=== PATIENT | male | born 1980 | race African-American/Black ===

== ENCOUNTER 2016-03-26 08:55 | Emergency (ER) ==
[2016-03-26] MEDS ORDERED: ZOFRAN IV ONE (09:27)
[2016-03-26] MEDS ORDERED: MORPHINE IV ONE (09:27)
[2016-03-26] MEDS ORDERED: NS 1,000 ML IV ONE (09:27)
--- NOTE | 2016-03-26 09:35 | PROVIDER DOCUMENTATION ---
HPI-Abdominal Pain/GI Problem - General Source: patient - History of Present Illness-ABD Abdominal Pain Onset Location: reports: epigastric Pain Radiation: reports: back Quality of Pain: reports: aching, cramping, sharp Severity in ED: reports: mild Onset/Duration: reports: abrupt, 1-3 hours ago Timing: reports: still present, constant Activities at Onset: reports: none Exposure to sick contacts?: No Modifying Factors: improves with: nothing Associated Symptoms: reports: back/neck pain, nausea. denies: chest pain, diaphoresis, diarrhea, EENT symptoms, fever/chills, genitourinary problems, malaise, vomiting Similar Symptoms Previously?: Yes Recently seen or treated by another doctor?: No <Titi White - Last Filed: 03/26/16 10:37> <Enid Gomez - Last Filed: 03/26/16 10:44> - General Chief Complaint: Abdominal Pain Stated Complaint: ABD PAIN Time Seen by Provider: 03/26/16 09:19 Allergies/Adverse Reactions: Patient Allergies Allergy/AdvReac Type Severity Reaction Status Date / Time No Known Allergies Allergy Verified 03/26/16 09:13 Home Medications: Lipase/Protease/Amylase [Creon] 12,000 units PO DAILY 03/26/16 - History of Present Illness-ABD Nature of Presenting Problems: patient is a 35 y/o M that presents with epigastric/ruq pain that began at 6am suddenly 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 He then developed nausea with it. history of pancreatitis, feels like it is a flare up again. Denies fever/ chills, vomiting, or chest pain. (Titi White) Review of Systems - Adult - REVIEW OF SYSTEMS - ADULT Constitutional: denies: chills, fever Eyes: reports: no symptoms reported Ears, Nose, Mouth & Throat: denies: ear pain, sinus problem, throat pain, throat swelling Cardiovascular: denies: chest pain, palpitations, syncope Respiratory: denies: chronic cough, cough, shortness of breath, wheezing Gastrointestinal: reports: abdominal pain, nausea. denies: constipation, diarrhea, vomiting Genitourinary: denies: dysuria, frequency, hematuria Musculoskeletal: reports: back pain. denies: joint pain, neck pain Integumentary: reports: no symptoms reported Neurological: reports: no symptoms reported Psychiatric: reports: no symptoms reported Endocrine: reports: no symptoms reported Hematologic/Lymphatic: reports: no symptoms reported Allergic/Immunologic: reports: no symptoms reported All Other Systems: Reviewed and Negative <Titi White - Last Filed: 03/26/16 10:37> Past History - Adult - PAST MEDICAL HISTORY-ADULT Review of Records: reports: Old Records Reviewed, Nursing Assessment Review, Medications Reviewed Gastrointestinal: reports: pancreatitis - PRIOR SURGERIES/PROCEDURES Surgical/Procedure History: reports: none - PRIOR HOSPITALIZATIONS Prior Hospitalizations: reports: for similar symptoms - IMMUNIZATION STATUS Childhood Immunizations: See Nurse Assessment Flu Vaccine: See Nurse Assessment - FAMILY HISTORY Family History: reviewed, not pertinent - SOCIAL HISTORY Smoking: cigarettes, less than 1 pack/day Alcohol Use Frequency: occasionally Living Situation: family <Titi White - Last Filed: 03/26/16 10:37> Physical Exam-General - PHYSICAL EXAM-ADULT Initial Vital Signs Reviewed: Yes - CONSTITUTIONAL General Appearance: alert, no apparent distress - EYES Eyes: PERRL/EOMI, pink conjunctivae - HEAD, EARS, NOSE, MOUTH & THROAT HENMT: moist mucous membranes, normal ENT inspection, pharynx normal - NECK Neck: non-tender, full range of motion, normal inspection - RESPIRATORY Respiratory: chest non-tender, lungs clear, normal breath sounds, no respiratory distress, no accessory muscle use - CARDIOVASCULAR Cardiovascular: regular rate, rhythm, no edema, no murmur - GASTROINTESTINAL (ABDOMEN) Abdominal Exam: normal bowel sounds, soft, no organomegaly, no pulsatile mass, tenderness (epigastric, RUQ) - MUSCULOSKELETAL Back Exam: no CVA tenderness, no vertebral tenderness Extremity: normal range of motion, non-tender, normal inspection, no pedal edema , normal capillary refill - SKIN Integumentary: normal color, warm/dry - NEUROLOGIC Neurologic: grossly normal, no motor/sensory deficits - PSYCHIATRIC Psych/Mental Status: normal mood/affect, normal thought content, normal thought process, oriented x 3 <iTti White - Last Filed: 03/26/16 10:37> Progress <Titi White - Last Filed: 03/26/16 10:37> - REASSESSMENT Reassessment #1 Time Reassessed: 10:41 Status: improving (Pt's pain and N/V controlled. Pt agrees to go home to have a trial. Understood that he might need to be back to ER and admitted. He is willing to try it out at home first.) <Enid Gomez X - Last Filed: 03/26/16 10:44> - PLAN OF CARE/RESULTS Progress/Plan/Lab Results: plan of care-labs, meds Vital Signs Temp Pulse Resp BP Pulse Ox 03/26/16 09:11 98.7 F 73 18 94/57 100 No Known Allergies Allergy (Verified 03/26/16 09:13) Lipase/Protease/Amylase [Creon] 12,000 units PO DAILY 03/26/16 Dietary Diet NPO Start FriMar 26 926 Laboratory 03/26/16 03/26/16 09:38 09:38 WBC 6.76 RBC 4.10 L Hgb 14.6 Hct 41.1 L MCV 100.2 H MCH 35.6 H MCHC 35.5 RDW Std Deviation 12.0 Plt Count 132 MPV 9.7 Immature Gran % (Auto) 0.1 Neut % (Auto) 79.3 H Lymph % (Auto) 13.2 L [place] % (Auto) 4.3 Eos % (Auto) 3.0 Baso % (Auto) 0.1 Immature Gran # (Auto) 0.01 Neut # (Auto) 5.36 Lymph # (Auto) 0.89 L [place] # (Auto) 0.29 Eos # (Auto) 0.20 Baso # (Auto) 0.01 Sodium 136 Potassium 3.6 Chloride 101 Carbon Dioxide 26 Anion Gap 9 BUN 14 Creatinine 0.7 Estimated GFR/1.73 m2 > 60 BUN/Creatinine Ratio 20 Glucose 113 H Calculated Osmolality 273 Calcium 9.1 Total Bilirubin 0.50 AST 21 ALT 15 Alkaline Phosphatase 61 Total Protein 7.7 Albumin 4.6 Globulin 3.0 Albumin/Globulin Ratio 1.0 Amylase 268 H Lipase 142 H Orders Category Date Time Status Saline Loc DIRECTED Care 03/26/16 09:27 Active NPO Diet 03/26/16 09:27 Active AMYLASE [CHEM] Stat Lab 03/26/16 09:38 Completed CBC WITH ELECTRONIC DIFF [HEME] Stat Lab 03/26/16 09:38 Completed COMPREHENSIVE METABOLIC PANEL [CHEM] Stat Lab 03/26/16 09:38 Completed LIPASE [CHEM] Stat Lab 03/26/16 09:[address] W/POSS RFLX CULT [URINALYSIS] Stat Lab 03/26/16 10:13 Ordered 0.9% Sodium Chloride Inj [Ns] 1,000 ml Med 03/26/16 09:27 Discontinued IV 999 mls/hr Morphine Med 03/26/16 09:27 Discontinued 4 mg IV NOW ONE Ondansetron [Zofran] Med 03/26/16 09:27 Discontinued 4 mg IV NOW ONE pt will be d/c home with rx, f/u with pcp, pt was clinically stable, will return if symptoms worsen (Titi White) Departure - Departure Time of Disposition Order: 10:38 Certified Medical Emergency: Emergent <Titi White - Last Filed: 03/26/16 10:37> - Departure Certified Medical Emergency: Emergent <Enid Gomez - Last Filed: 03/26/16 10:44> - Departure DIAGNOSIS: Pancreatitis Qualifiers: Chronicity: chronic Pancreatitis type: unspecified pancreatitis type Qualified Code(s): K86.1 - Other chronic pancreatitis Disposition: HOME 01 Condition: Stable Additional Instructions: Low threshold to RTED if your symptoms worsen. Follow up with PCP PARI. Clear liquid diet till sees PCP. Prescriptions: Hydrocodone/APAP 7.5 mg/325 mg [[place]-7.5] 1 each PO Q8H PRN PRN #10 tablet PRN Reason: Pain Ondansetron [Zofran Odt] 8 mg PO TID #10 tab.rapdis Referrals: Pino Posada DO [Primary Care Provider] - Call for Appoint. 1-2days Instructions: Acute Pancreatitis, [id number], Clear Liquid Diet, [id number] , Food Choices to Help Relieve Diarrhea, Adult Attestation - Scribe Verification/Attestation Scribe:: Titi White Acting as Scribe for:: Enid Gomez Scribe documention review:: This chart was documented by a scribe and accurately reflects the service the provider performed and the decisions made by the provider. <Titi White - Last Filed: 03/26/16 10:37> Physician Attestation - Physician Attestation I, the provider, attest to the following statement:: Enid Gomez Physician documentation Attestation:: This documentation recorded by the scribe accurately reflects the service I personally performed and the decisions made by me. <Titi White - Last Filed: 03/26/16 10:37>
[2016-03-26 09:40] LABS: MANUAL DIFF NEEDED? NO
[2016-03-26 09:41] LABS: BASO% 0.1 % (0.0-0.8); HEMATOCRIT 41.1 % (42.0-52.0); HEMOGLOBIN 14.6 g/dL (14.0-18.0); IMM GRAN# 0.01 X1000 (0.0-0.04); IMM GRAN% 0.1 % (0.0-0.5); LYMPH# 0.89 X1000 (1.2-3.4); LYMPH% 13.2 % (20.5-51.1); MCH 35.6 PG (27-31); MCHC 35.5 g/dL (33-37); MCV 100.2 FL (81-99); MONO# 0.29 X1000 (0.11-0.59); MONO% 4.3 % (1.7-9.3); MPV 9.7 FL (7.4-10.4); NEUT% 79.3 % (42.2-75.2); PLT 132 X1000 (130-400)
[2016-03-26 10:09] LABS: AGAP 9; ALBUMIN 4.6 g/dL (3.5-5.0); ALKALINE PHOSPHATASE 61 U/L (32-122); AMYLASE 268 U/L (20-200); BUN 14 mg/dL (8-22); CALCIUM 9.1 mg/dL (8.8-10.2); CHLORIDE 101 mmol/L (98-107); COSMO 273; GOT 21 U/L (10-34); GPT 15 U/L (10-44); LIPASE 142 U/L (13-60); POTASSIUM 3.6 mmol/L (3.5-5.1); SODIUM 136 mmol/L (136-145); TCO2 26 mmol/L (25-35); TOTAL PROTEIN 7.7 g/dL (6.3-8.3)
[2016-03-26 11:16] VITALS: BP 116/76
== END 2016-03-26 13:45 | disposition home or self-care (01) ==
LOC: P.ED 08:55
DX: K86.1 Other chronic pancreatitis (principal); R10.13 Epigastric pain; M54.9 Dorsalgia, unspecified; R11.0 Nausea; R10.11 Right upper quadrant pain; R10.816 Epigastric abdominal tenderness; R10.811 Right upper quadrant abdominal tenderness; F17.210 Nicotine dependence, cigarettes, uncomplicated; Z79.899 Other long term (current) drug therapy; Z71.6 Tobacco abuse counseling
CPT/HCPCS: 80053; 82150; 83690; 85025; 96361; 96374; 96375; G0480; J2270; J2405; J7030

== ENCOUNTER 2016-06-10 03:47 | Inpatient (IN) ==
[2016-06-10 04:22] LABS: MANUAL DIFF NEEDED? NO
[2016-06-10 04:27] LABS: BASO% 0.1 % (0.0-0.8); EOS# 0.12 X1000 (0.0-0.7); EOS% 1.2 % (0.0-10.0); HEMATOCRIT 39.4 % (42.0-52.0); HEMOGLOBIN 14.2 g/dL (14.0-18.0); IMM GRAN# 0.02 X1000 (0.0-0.04); IMM GRAN% 0.2 % (0.0-0.5); LYMPH# 1.14 X1000 (1.2-3.4); LYMPH% 11.2 % (20.5-51.1); MCH 35.7 PG (27-31); MONO# 0.52 X1000 (0.11-0.59); MONO% 5.1 % (1.7-9.3); MPV 9.8 FL (7.4-10.4); NEUT% 82.2 % (42.2-75.2); PLT 148 X1000 (130-400); RBC 3.98 XMIL (4.7-6.1)
[2016-06-10 04:41] LABS: AGAP 13; ALBUMIN 4.3 g/dL (3.5-5.0); ALKALINE PHOSPHATASE 61 U/L (32-122); BUN 5 mg/dL (8-22); CALCIUM 8.9 mg/dL (8.8-10.2); CHLORIDE 100 mmol/L (98-107); COSMO 271; GOT 20 U/L (10-34); GPT 11 U/L (10-44); LIPASE 228 U/L (13-60); POTASSIUM 3.7 mmol/L (3.5-5.1); SODIUM 137 mmol/L (136-145); TCO2 24 mmol/L (25-35); TOTAL PROTEIN 6.9 g/dL (6.3-8.3)
[2016-06-10] MEDS ORDERED: DILAUDID IV ONE (05:44)
[2016-06-10] MEDS ORDERED: ZOFRAN IV ONE (05:44)
--- NOTE | 2016-06-10 05:47 | PROVIDER DOCUMENTATION ---
HPI-Abdominal Pain/GI Problem - General Chief Complaint: Return/Recheck Stated Complaint: CHECK/RECHECK Time Seen by Provider: 06/10/16 04:05 Source: patient (Patient is a 35 year old black male with history of pancreatitis who presents for 2nd time since yesterday with worsening sharp epigatric pain with nausea and vomiting.) Allergies/Adverse Reactions: Patient Allergies Allergy/AdvReac Type Severity Reaction Status Date / Time No Known Allergies Allergy Verified 03/26/16 09:13 Home Medications: Home Medication List Medication Instructions Recorded Confirmed Last Taken Type Hydrocodone/APAP 7.5 mg/325 mg 1 each PO Q8H PRN PRN #10 tablet 03/26/16 Unknown Rx [[place]-7.5] Lipase/Protease/Amylase [Creon] 12,000 units PO DAILY 03/26/16 03/26/16 Unknown History Ondansetron [Zofran Odt] 8 mg PO TID #10 tab.rapdis 03/26/16 Unknown Rx Cephalexin [Keflex] 500 mg PO BID #10 capsule 06/09/16 Unknown Rx Ondansetron [Zofran] 4 mg PO Q6H PRN PRN #20 tablet 06/09/16 Unknown Rx Oxycodone/APAP 10 mg/325 mg 1 each PO Q4H PRN PRN #12 tablet 06/09/16 Unknown Rx [Percocet-10] - History of Present Illness-ABD Pain Radiation: reports: epigastric Quality of Pain: reports: sharp Onset/Duration: reports: gradual Timing: reports: still present, getting worse Activities at Onset: reports: none Modifying Factors: improves with: eating Associated Symptoms: reports: nausea. denies: chest pain, constipation, diarrhea, genitourinary problems Dark Stools Present?: reports: none noticed Review of Systems - Adult - REVIEW OF SYSTEMS - ADULT Constitutional: denies: chills, fever Eyes: reports: no symptoms reported Ears, Nose, Mouth & Throat: reports: no symptoms reported Cardiovascular: reports: no symptoms reported Respiratory: reports: no symptoms reported Gastrointestinal: reports: abdominal pain, nausea, vomiting Genitourinary: reports: no symptoms reported Musculoskeletal: reports: no symptoms reported Integumentary: reports: no symptoms reported Neurological: reports: no symptoms reported Psychiatric: reports: no symptoms reported Endocrine: reports: no symptoms reported Hematologic/Lymphatic: reports: no symptoms reported Allergic/Immunologic: reports: no symptoms reported All Other Systems: Reviewed and Negative Past History - Adult - PAST MEDICAL HISTORY-ADULT Review of Records: reports: Old Records Reviewed, Nursing Assessment Review, Medications Reviewed, Social history reviewed & non-contributory. Major Childhood Illnesses: reports: denies history Gastrointestinal: reports: pancreatitis - PRIOR SURGERIES/PROCEDURES Surgical/Procedure History: reports: none - PRIOR HOSPITALIZATIONS Prior Hospitalizations: reports: for similar symptoms - IMMUNIZATION STATUS Childhood Immunizations: See Nurse Assessment Flu Vaccine: See Nurse Assessment Physical Exam-General - PHYSICAL EXAM-ADULT Initial Vital Signs Reviewed: Yes - CONSTITUTIONAL General Appearance: alert, other (in pain) - EYES Eyes: other (clear) - HEAD, EARS, NOSE, MOUTH & THROAT HENMT: other (semimoist) - NECK Neck: supple - RESPIRATORY Respiratory: lungs clear, normal breath sounds - CARDIOVASCULAR Cardiovascular: regular rate, rhythm - GASTROINTESTINAL (ABDOMEN) Abdominal Exam: soft, other (epigastric abdominal tenderness) - GENITOURINARY Rectal Exam: deferred - LYMPHATIC Lymphatic: no adenopathy - MUSCULOSKELETAL Back Exam: normal inspection Extremity: normal range of motion - SKIN Integumentary: normal color, normal turgor - NEUROLOGIC Neurologic: grossly normal - PSYCHIATRIC Psych/Mental Status: normal mood/affect Progress - CHANGE OF SHIFT REPORT (ED Provider) Report Given and Care Transferred to:: Dr. Reynolds Time of Transfer: 06:00 Items Pending: Other (report to hospitalist, Dr. Haas) Departure - Departure Time of Disposition Order: 06:00 DIAGNOSIS: Pancreatitis, acute Qualifiers: Pancreatitis type: unspecified pancreatitis type Acute pancreatitis complication: unspecified Qualified Code(s): K85.90 - Acute pancreatitis without necrosis or infection, unspecified Disposition: ADMITTED INPATIENT 09 Certified Medical Emergency: Emergent Condition: Stable
[2016-06-10] MEDS ORDERED: NS 1,000 ML IV ONE (05:48)
[2016-06-10] MEDS: NS 1,000 ML IV SCH ×3 (07:44→22:24)
[2016-06-10] MEDS: DILAUDID IV PRN ×4 (10:23→22:37)
[2016-06-10] MEDS: ZOFRAN IV PRN ×3 (11:11→19:12)
--- NOTE | 2016-06-10 12:18 | HISTORY AND PHYSICAL ---
PRIMARY CARE PHYSICIAN: Dr. Posada. CHIEF COMPLAINT: Abdominal pain with nausea and vomiting for 2 days that progressively worsened. HISTORY OF PRESENTING ILLNESS: This is a 35-year-old, male, who is known to this medical service who apparently presented to the ER on 06/09/2016 with complaints of generalized abdominal pain, nausea and vomiting. Has a history of chronic pancreatitis. He was apparently sent home from the emergency room at that time. States that he went home and the pain increased, and around 5 a.m. this morning he returned back to the emergency room with complaints of worsening sharp epigastric pain with nausea, vomiting. His workup showed a lipase of 228 which is up from when he was in the emergency room on 06/09/2016 at 1:51. So he is being admitted for further evaluation and treatment. PAST MEDICAL HISTORY: 1. Recurrent pancreatitis. 2. GERD. 3. Eczema. 4. ETOH abuse. PAST SURGICAL HISTORY: Noncontributory. FAMILY HISTORY: Noncontributory. SOCIAL HISTORY: He currently smokes a half a pack a day and has done so for 15 years. States he has been drinking alcohol; the last drink approximately 1 week ago and had been drinking 6 packs of beer. He did not disclose how long that he had been doing that and he denied any illicit drugs. ALLERGIES: He has no known drug allergies. HOME MEDICATIONS: Will be verified, and we will restart those as appropriate. LABORATORY DATA: Showed a white blood cell count of 10.20, hemoglobin 14.2, hematocrit 39.4, platelets 148,000. Sodium 137, potassium 3.7, chloride 100, CO2 24, BUN of 5 with a creatinine of 0.6, glucose 103. Lipase of 228. REVIEW OF SYSTEMS: He denies any fever, chills, blurred vision, dizziness, chest pain, coughing, shortness of breath. He is positive for generalized abdominal pain but worse in the epigastric area. Nausea, and vomiting. Denied any diarrhea or burning or hurting with urination. PHYSICAL EXAMINATION: VITAL SIGNS: On arrival had a temperature of 98 degrees, pulse 64, respirations 20, blood pressure 126/78 saturating 99% on room air. GENERAL: This is a 35-year-old, male who is lying in the bed and answers questions appropriately. HEENT: Normocephalic and atraumatic. Pupils are equal, round, reactive to light. Extraocular movements are intact. Oropharynx and nares are clear. NECK: Supple. LUNGS: Clear to auscultation bilaterally with equal lung expansion and chest wall movement. HEART: With regular rate and rhythm. No murmurs, rubs, or gallops. ABDOMEN: Soft. Tenderness to palpation to the epigastric and right upper quadrant. Bowel sounds are present x4 quadrants. EXTREMITIES: No clubbing, cyanosis, or edema. NEUROLOGICAL: The cranial nerves 2-12 are grossly intact. ASSESSMENT: 1. Acute pancreatitis. 2. Nausea and vomiting. 3. Ethanol abuse. 4. Tobacco abuse. PLAN: He has been admitted to the medical unit at [facility]. Held NPO. He will receive Dilaudid 1 mg IV q.4 hours p.r.n., Zofran 4 mg IV q.4 hours p.r.n., normal saline at 125 mL an hour. We will recheck a CBC, BMP, and amylase lipase in the a.m. Dictated by ELSY Lea for Shaheen Haas MD pt examined, agree with above, likely alcoholic, will repeat ct scan to rule out pseudocyst and other pathology APENOT MTDD
[2016-06-10] MEDS ORDERED: DILAUDID ONE (14:57)
[2016-06-10] MEDS ORDERED: SODIUM CHLORIDE 0.9% INJ SCH (19:08)
[2016-06-10] MEDS: PROTONIX IV SCH (22:23)
[2016-06-10] MEDS: LOVENOX SUBQ SCH (22:23)
[2016-06-11] MEDS: DILAUDID IV PRN ×4 (04:26→21:50)
[2016-06-11] MEDS: NS 1,000 ML IV SCH ×3 (04:27→13:03)
[2016-06-11 06:27] LABS: MANUAL DIFF NEEDED? NO
[2016-06-11 06:33] LABS: BASO% 0.1 % (0.0-0.8); EOS# 0.07 X1000 (0.0-0.7); EOS% 0.7 % (0.0-10.0); HEMATOCRIT 39.7 % (42.0-52.0); HEMOGLOBIN 14.1 g/dL (14.0-18.0); IMM GRAN# 0.02 X1000 (0.0-0.04); IMM GRAN% 0.2 % (0.0-0.5); LYMPH# 0.95 X1000 (1.2-3.4); LYMPH% 9.9 % (20.5-51.1); MCH 35.3 PG (27-31); MCHC 35.5 g/dL (33-37); MCV 99.3 FL (81-99); MONO# 0.54 X1000 (0.11-0.59); MONO% 5.6 % (1.7-9.3); MPV 10.2 FL (7.4-10.4); NEUT% 83.5 % (42.2-75.2); PLT 145 X1000 (130-400)
[2016-06-11 07:06] LABS: AGAP 15; ALBUMIN 3.7 g/dL (3.5-5.0); ALKALINE PHOSPHATASE 53 U/L (32-122); AMYLASE 390 U/L (20-200); BUN 5 mg/dL (8-22); CALCIUM 8.5 mg/dL (8.8-10.2); CHLORIDE 100 mmol/L (98-107); COSMO 268; GOT 15 U/L (10-34); GPT 8 U/L (10-44); POTASSIUM 3.8 mmol/L (3.5-5.1); SODIUM 136 mmol/L (136-145); TCO2 22 mmol/L (25-35); TOTAL PROTEIN 6.3 g/dL (6.3-8.3)
[2016-06-11 07:35] LABS: LIPASE 501 U/L (13-60)
[2016-06-11] MEDS ORDERED: LR 1,000 ML IV ONE (15:33)
--- NOTE | 2016-06-11 16:20 | PROGRESS NOTE ---
DATE: 06/11/2016 SUBJECTIVE: Patient is still having pain. His appetite is poor. Still with nausea. Pain is sharp, midline, radiates to the back. OBJECTIVE: Vital signs: Blood pressure 122/68, heart rate of 81, respiratory rate 20, temperature 98.8 degrees. Cardiovascular: Regular rate and rhythm. Pulmonary: Bilateral breath sounds. Clear to auscultation. GI: Soft, tender to palpation in mid epigastrium. Nondistended. Bowel sounds are positive. LABORATORY DATA: Amylase and lipase are 390 and 501. Lipase was 228 yesterday. GGT is normal, which would suggest he is not drinking alcohol. PROBLEM: Acute pancreatitis, recurrent pancreatitis, possibly surreptitious alcohol use versus other process. We will go ahead and CT him. He has not had imaging this admission and his numbers are somewhat worse today. We will follow his laboratory, continue intravenous fluids. Continue pain medications, nausea medicines and follow oral. DISCHARGE CONDITION: Pending resolution of his other multiple issues.
--- NOTE | 2016-06-11 16:34 | Diag Imaging Result Document ---
PROCEDURE NAME: ABDOMEN W/CONTRAST - 06/11/2016 CT OF THE ABDOMEN WITH IV CONTRAST: COMPARISON: 06/01/2015. FINDINGS: There are several calcified granulomata in the spleen. Since the previous study, there has been development of inflammatory stranding around the pancreas consistent with acute pancreatitis. Non-loculated fluid is tracking around the pancreas as well as into the pelvis and out of the field of view. No well-defined pancreatic abscess is identified. The gallbladder is unremarkable. The splenic and portal veins appear to be patent. The remainder of the solid viscera of the abdomen and the visualized abdominal segments of the GI tract are grossly unremarkable. IMPRESSION: Interval development of acute pancreatitis as described.
[2016-06-11] MEDS: PROTONIX IV SCH (18:33)
[2016-06-11] MEDS: LOVENOX SUBQ SCH (18:34)
[2016-06-11] MEDS: ZOFRAN IV PRN (21:51)
[2016-06-12] MEDS: NS 1,000 ML IV SCH ×4 (02:30→18:07)
[2016-06-12] MEDS: DILAUDID IV PRN ×4 (02:31→23:04)
[2016-06-12 06:11] LABS: HEMATOCRIT 36.8 % (42.0-52.0); HEMOGLOBIN 13.2 g/dL (14.0-18.0); MCH 35.2 PG (27-31); MCHC 35.9 g/dL (33-37); MCV 98.1 FL (81-99); MPV 10.4 FL (7.4-10.4); RBC 3.75 XMIL (4.7-6.1)
[2016-06-12 06:34] LABS: AGAP 8; ALBUMIN 3.5 g/dL (3.5-5.0); ALKALINE PHOSPHATASE 47 U/L (32-122); AMYLASE 161 U/L (20-200); BUN 5 mg/dL (8-22); CALCIUM 8.6 mg/dL (8.8-10.2); CHLORIDE 101 mmol/L (98-107); COSMO 267; GOT 15 U/L (10-34); GPT 8 U/L (10-44); LIPASE 99 U/L (13-60); POTASSIUM 3.7 mmol/L (3.5-5.1); SODIUM 135 mmol/L (136-145); TCO2 27 mmol/L (25-35)
--- NOTE | 2016-06-12 17:23 | PROGRESS NOTE ---
DATE: 06/12/2016 SUBJECTIVE: Patient has no focal complaints. OBJECTIVE: Vital Signs: Blood pressure 139/82, heart rate is 60, respiratory rate 18, 98.3, 100% on room air. Cardiovascular: Regular rate and rhythm. Pulmonary: Bilateral breath sounds. Clear to auscultation. GI: Soft, nontender, nondistended. Bowel sounds are positive. Extremities: No clubbing or cyanosis. Lymphatics: No peripheral edema. Neurological: Nonfocal. LABORATORY DATA: Amylase is normal now, lipase is down to 91, which is better than it was on admission, 99. So much improved. PROBLEM LIST: Acute pancreatitis, recurrent. Concern over alcohol use. The GGT is normal. In any case, the patient is clinically stabilizing. We will advance diet and we will follow. DISPOSITION: Advance diet, possibly home tomorrow, versus next day.
[2016-06-12] MEDS: PROTONIX IV SCH (18:37)
[2016-06-13] MEDS: ZOFRAN IV PRN ×3 (02:44→16:11)
[2016-06-13] MEDS: DILAUDID IV PRN ×4 (02:44→23:18)
[2016-06-13 06:30] LABS: HEMATOCRIT 36.2 % (42.0-52.0); HEMOGLOBIN 12.9 g/dL (14.0-18.0); MCH 35.1 PG (27-31); MCHC 35.6 g/dL (33-37); MCV 98.6 FL (81-99); RBC 3.67 XMIL (4.7-6.1)
[2016-06-13 07:06] LABS: AGAP 8; ALBUMIN 3.6 g/dL (3.5-5.0); ALKALINE PHOSPHATASE 43 U/L (32-122); BUN 4 mg/dL (8-22); CALCIUM 8.6 mg/dL (8.8-10.2); CHLORIDE 102 mmol/L (98-107); COSMO 271; GOT 15 U/L (10-34); GPT 7 U/L (10-44); LIPASE 105 U/L (13-60); POTASSIUM 3.8 mmol/L (3.5-5.1); SODIUM 137 mmol/L (136-145); TCO2 27 mmol/L (25-35); TOTAL PROTEIN 6.1 g/dL (6.3-8.3)
[2016-06-13] MEDS: NS 1,000 ML IV SCH ×4 (07:26→23:18)
--- NOTE | 2016-06-13 16:23 | PROGRESS NOTE ---
DATE: 06/13/2016 SUBJECTIVE: Patient has no focal complaints. His pain is still present but overall improved. He does not look to be in any extremis. OBJECTIVE: Vital signs: Blood pressure 125/98, heart rate 73, respiratory rate 18, temperature 98.5 degrees, 100% saturation on room air. Cardiovascular: Regular rate and rhythm. Pulmonary: Bilateral breath sounds. Clear to auscultation. GI: Soft, nontender, nondistended. Bowel sounds are positive. Extremities: No clubbing or cyanosis. Lymphatics: No peripheral edema. LABORATORY DATA: White count 4.6, hemoglobin and hematocrit 12 and 36, platelets of 127,000 but they are not changed from on admission. PROBLEM LIST: 1. Acute pancreatitis, recurrent. He denies alcohol use. His GGT is actually okay. I think he may just at this point have chronic pancreatitis. He did admit to intermittent alcohol use previously. Alcohol level was normal. Continue IV fluids, pain medicine, nausea medicine, and will advance diet today, and check electrolytes. 2. Anemia. Will check iron stores and follow. 3. Disposition. Home once he tolerates p.o., possibly 1-2 days, maybe tomorrow.
[2016-06-13] MEDS: PROTONIX IV SCH (20:36)
[2016-06-14] MEDS: DILAUDID IV PRN ×3 (03:45→12:46)
[2016-06-14 06:59] LABS: HEMATOCRIT 36.9 % (42.0-52.0); HEMOGLOBIN 13.4 g/dL (14.0-18.0); MCH 35.5 PG (27-31); MCHC 36.3 g/dL (33-37); MCV 97.9 FL (81-99); MPV 9.8 FL (7.4-10.4); RBC 3.77 XMIL (4.7-6.1)
[2016-06-14 07:22] LABS: AGAP 12; ALBUMIN 3.8 g/dL (3.5-5.0); ALKALINE PHOSPHATASE 47 U/L (32-122); BUN 3 mg/dL (8-22); CALCIUM 9.1 mg/dL (8.8-10.2); CHLORIDE 104 mmol/L (98-107); COSMO 278; GOT 15 U/L (10-34); GPT 8 U/L (10-44); IRON SATURATION 30 %; LIPASE 111 U/L (13-60); POTASSIUM 3.6 mmol/L (3.5-5.1); SODIUM 141 mmol/L (136-145); TCO2 25 mmol/L (25-35); TIBC 183 ug/dL; TOTAL IRON 54 ug/dL (53-167); TOTAL PROTEIN 6.7 g/dL (6.3-8.3); UNBOUND IRON 129 ug/dL (112-346)
[2016-06-14] MEDS: NS 1,000 ML IV SCH (08:29)
[2016-06-14] MEDS ORDERED: DILAUDID ONE (08:37)
[2016-06-14] MEDS: ZOFRAN IV PRN (12:46)
--- NOTE | 2016-06-14 15:06 | DISCHARGE SUMMARY ---
ADMISSION DATE: 06/10/2016 DISCHARGE DATE: 06/14/2016 DIAGNOSES: 1. Recurrent pancreatitis. 2. Nausea and vomiting, resolved. 3. Alcohol abuse. 4. Tobacco abuse. 5. Gastroesophageal reflux disease. DIAGNOSTICS: 06/11/2016, CT of the abdomen revealed development of acute pancreatitis. HOSPITAL COURSE: Mr. Mcelroy presented to the emergency room with complaint of abdominal pain, nausea and vomiting, and was found to have acute pancreatitis per CT scan as well as elevated amylase and lipase of 390 and 501 respectively. He was NPO, given IV hydration with IV Dilaudid, Zofran and Protonix. He did improve clinically with amylase to get decreasing to 161 within 24 hours. Lipase has trended down. He does have a history of alcohol abuse. On this admission his alcohol level was negative. GGT is normal at 20. Liver enzymes within normal limits this admission. He does state that he is not drinking alcohol and he is avoiding NSAIDs. PHYSICAL EXAMINATION: Cardiovascular: Regular rate and rhythm. S1 and S2 appreciated. Pulmonary: Breath sounds are clear with no increased work of breathing noted. Gastrointestinal: Abdomen is soft, nontender, nondistended with bowel sounds in all 4 quadrants. Extremities: No clubbing, cyanosis, or edema. DISCHARGE MEDICATIONS: 1. Dilaudid 2 mg q.4 hours p.r.n. pain #20 with no refills. 2. Creon daily. 3. Zofran 4 mg every 6 hours as needed. FOLLOWUP: 1. He is to follow up with his primary care physician in 1-[address] Agudelo as scheduled, sooner if needed. DISCHARGE DIET: He is to advance his diet as tolerated. DISCHARGE VITAL SIGNS: Blood pressure is 131/83 with a heart rate of 64. Respirations are 16, temperature is 98.3 degrees oral with room air saturations 100%. DISPOSITION: He is being discharged home in stable condition with family members. TIME SPENT: This is a greater than 30 minute discharge. Dictated by ELSY Woodruff for Kp Lam MD cc: ELSY Woodruff MD
[2016-06-14 16:23] VITALS: BP 123/73
== END 2016-06-14 17:44 | disposition home or self-care (01) ==
LOC: P.ED 03:47 → OBSVTOIN 07:37 → P.EDIPHOLD 07:37 → P.MEDSURG 18:47
PROVIDERS: ATTEND Internal Medicine

== ENCOUNTER 2016-10-22 05:53 | Inpatient (IN) ==
[2016-10-22] MEDS ORDERED: MORPHINE IV ONE (06:06)
[2016-10-22] MEDS ORDERED: ZOFRAN IV ONE (06:06)
[2016-10-22] MEDS ORDERED: NS 1,000 ML IV ONE ×2 (06:06→10:44)
[2016-10-22 06:52] LABS: AGAP 13; ALBUMIN 4.8 g/dL (3.5-5.0); ALKALINE PHOSPHATASE 76 U/L (32-122); AMYLASE 294 U/L (20-200); BUN 6 mg/dL (8-22); CALCIUM 9.5 mg/dL (8.8-10.2); CHLORIDE 99 mmol/L (98-107); COSMO 274; GOT 25 U/L (10-34); GPT 16 U/L (10-44); POTASSIUM 3.4 mmol/L (3.5-5.1); SODIUM 138 mmol/L (136-145); TCO2 26 mmol/L (25-35); TOTAL PROTEIN 8.2 g/dL (6.3-8.3)
[2016-10-22 06:53] LABS: BASO% 0.1 % (0.0-0.8); EOS# 0.48 X1000 (0.0-0.7); EOS% 6.6 % (0.0-10.0); HEMATOCRIT 44.2 % (42.0-52.0); HEMOGLOBIN 16.3 g/dL (14.0-18.0); IMM GRAN# 0.01 X1000 (0.0-0.04); IMM GRAN% 0.1 % (0.0-0.5); LYMPH# 1.37 X1000 (1.2-3.4); MANUAL DIFF NEEDED? NO; MCH 36.1 PG (27-31); MCHC 36.9 g/dL (33-37); MONO% 9.7 % (1.7-9.3); MPV 10.2 FL (7.4-10.4); NEUT% 64.5 % (42.2-75.2); PLT 160 X1000 (130-400); RBC 4.51 XMIL (4.7-6.1)
--- NOTE | 2016-10-22 06:59 | PROVIDER DOCUMENTATION ---
HPI-Abdominal Pain/GI Problem - General Chief Complaint: Abdominal Pain Stated Complaint: "PANCREATITIS" Time Seen by Provider: 10/22/16 06:04 Allergies/Adverse Reactions: Patient Allergies Allergy/AdvReac Type Severity Reaction Status Date / Time No Known Allergies Allergy Verified 03/26/16 09:13 Home Medications: Home Medication List Medication Instructions Recorded Confirmed Last Taken Type NK [No Home Medications] 10/22/16 10/22/16 Unknown History - History of Present Illness-ABD Nature of Presenting Problems: Recurrent pancreatitis. Epigastric pain started this morning when he woke up. Saw GI specialist in the past. Quit drinking since the diagnosis. Denies F/C/ diarrhea, but abd pain with N/V. Abdominal Pain Onset Location: reports: epigastric Pain Radiation: reports: back Quality of Pain: reports: sharp Severity in ED: reports: moderate, severe Onset/Duration: reports: this morning Timing: reports: still present Activities at Onset: reports: none Exposure to sick contacts?: No Modifying Factors: improves with: nothing Associated Symptoms: reports: nausea, vomiting Last BM: unsure Dark Stools Present?: reports: none noticed Rectal Bleeding: reports: none # of Diarrhea Episodes: 0 Rectal Pain: reports: none # of Vomiting Episodes: 3 Emesis Description: reports: clear Bruising or Bleeding Gums?: No Similar Symptoms Previously?: Yes Recently seen or treated by another doctor?: Yes Review of Systems - Adult - REVIEW OF SYSTEMS - ADULT Constitutional: reports: no symptoms reported Eyes: reports: no symptoms reported Ears, Nose, Mouth & Throat: reports: no symptoms reported Cardiovascular: reports: no symptoms reported Respiratory: reports: no symptoms reported Gastrointestinal: reports: see HPI, abdominal pain, nausea, vomiting Genitourinary: reports: no symptoms reported Musculoskeletal: reports: no symptoms reported Integumentary: reports: no symptoms reported Neurological: reports: no symptoms reported All Other Systems: Reviewed and Negative Past History - Adult - PAST MEDICAL HISTORY-ADULT Review of Records: reports: Old Records Reviewed, Nursing Assessment Review, Medications Reviewed Major Childhood Illnesses: reports: denies history Gastrointestinal: reports: pancreatitis Other Conditions: reports: denies history - PRIOR SURGERIES/PROCEDURES Surgical/Procedure History: reports: none - PRIOR HOSPITALIZATIONS Prior Hospitalizations: reports: for similar symptoms - IMMUNIZATION STATUS Childhood Immunizations: See Nurse Assessment Flu Vaccine: See Nurse Assessment - FAMILY HISTORY Family History: reviewed, not pertinent - SOCIAL HISTORY Smoking: denies Substance Use: none/never Alcohol Use Frequency: sober (former use) Living Situation: family Occupation: [employer] Physical Exam-General - PHYSICAL EXAM-ADULT Initial Vital Signs Reviewed: Yes - CONSTITUTIONAL General Appearance: appears well, alert, no apparent distress - EYES Eyes: PERRL/EOMI, pink conjunctivae, anisocoria, conjuctival exudate - HEAD, EARS, NOSE, MOUTH & THROAT HENMT: normocephalic/atraumatic, moist mucous membranes, normal ENT inspection - NECK Neck: non-tender, full range of motion, supple, normal inspection - RESPIRATORY Respiratory: chest non-tender, lungs clear, normal breath sounds, no pleuratic chest pain, no respiratory distress, no accessory muscle use - CARDIOVASCULAR Cardiovascular: normal peripheral pulses, regular rate, rhythm, no edema, no gallop - GASTROINTESTINAL (ABDOMEN) Abdominal Exam: guarding, tenderness (Moderate epigastric tenderness, no guarding and no rebound.). negative: rigid, rebound, obturator sign, Rovsing's sign - LYMPHATIC Lymphatic: no adenopathy - MUSCULOSKELETAL Back Exam: normal inspection, no CVA tenderness Extremity: normal range of motion, non-tender, normal gait, normal inspection - SKIN Integumentary: normal color, normal turgor, warm/dry - NEUROLOGIC Neurologic: no motor/sensory deficits - PSYCHIATRIC Psych/Mental Status: normal mood/affect, normal thought content, normal thought process, oriented x 3 Progress - PLAN OF CARE/RESULTS Progress/Plan/Lab Results: Vital Signs - 8 hr 10/22/16 06:02 Temperature 97.4 F L Pulse Rate 70 Respiratory Rate 18 Blood Pressure 112/81 O2 Sat by Pulse Oximetry 97 Laboratory Results - last 24 hr 10/22/16 10/22/16 06:05 06:05 Sodium 138 Potassium 3.4 L Chloride 99 Carbon Dioxide 26 Anion Gap 13 BUN 6 L Creatinine 0.8 Estimated GFR/1.73 m2 > 60 BUN/Creatinine Ratio 8 Glucose 118 H Calculated Osmolality 274 Calcium 9.5 Total Bilirubin 0.30 AST 25 ALT 16 Alkaline Phosphatase 76 Total Protein 8.2 Albumin 4.8 Globulin 3.0 Albumin/Globulin Ratio 1.0 Amylase 294 H Lipase 569 H Plasma/Serum Ethyl Alc Orders Category Date Time Status Saline Loc DIRECTED Care 10/22/16 06:06 Active NPO Diet 10/22/16 06:06 Active ALCOHOL BLOOD Stat Lab 10/22/16 06:05 Completed AMYLASE [CHEM] Stat Lab 10/22/16 06:05 Completed CBC WITH ELECTRONIC DIFF [HEME] Stat Lab 10/22/16 06:05 Results COMPREHENSIVE METABOLIC PANEL [CHEM] Stat Lab 10/22/16 06:05 Completed LIPASE [CHEM] Stat Lab 10/22/16 06:[address] W/POSS RFLX CULT [URINALYSIS] Stat Lab 10/22/16 06:06 Uncollected URINE DRUG SCREEN PL Stat Lab 10/22/16 06:06 Uncollected 0.9% Sodium Chloride Inj [Ns] 1,000 ml Med 10/22/16 06:06 Active IV 999 mls/hr Morphine Med 10/22/16 06:06 Discontinued 4 mg IV NOW ONE Ondansetron [Zofran] Med 10/22/16 06:06 Discontinued 4 mg IV NOW ONE Result Diagrams: 10/22/16 06:05 10/22/16 06:05 - CONSULTS/PCP/HOSPITALIST Notification #1 *Consult/PCP/Hospitalist*: Dr. Lam Time Discussed: 07:45 Consult Disposition: Will see in ED, Admit Departure - Departure Date of Disposition Decision: 10/22/16 Time of Disposition Decision: 07:45 DIAGNOSIS: Pancreatitis Disposition: ADMITTED INPATIENT 09 Certified Medical Emergency: Emergent Condition: Stable Referrals and Follow-Ups: None,PCP [Primary Care Provider] - - Critical Care Note This patient required my direct & personal management of CC.: No
[2016-10-22 07:36] LABS: LIPASE 851 U/L (13-60)
[2016-10-22 08:16] LABS: UR AMPHETAMINES QUAL NONE DETECTED (NONE DETECT); UR BARBITUATES QUAL NONE DETECTED (NONE DETECT); UR BENZODIAZEPIN QUAL NONE DETECTED (NONE DETECT); UR CANNABINOIDS QUAL NONE DETECTED (NONE DETECT); UR COCAINE QUAL NONE DETECTED (NONE DETECT); UR MDMA QUAL NONE DETECTED (NONE DETECT); UR METHADONE QUAL NONE DETECTED (NONE DETECT); UR METHAMPHETAMINE QUAL NONE DETECTED (NONE DETECT); UR OPIATES QUAL PRESUMPTIVE POSITIVE (NONE DETECT); UR OXYCODONE QUAL NONE DETECTED (NONE DETECT); UR PCP QUAL NONE DETECTED (NONE DETECT); UR TCA QUAL NONE DETECTED (NONE DETECT)
[2016-10-22 08:30] LABS: BILIRUBIN URINE NEGATIVE (NEGATIVE); BLOOD URINE NEGATIVE (NEGATIVE); CLARITY SL. CLOUDY (CLEAR); COLOR YELLOW; GLUCOSE URINE NEGATIVE (NEGATIVE); PROTEIN URINE NEGATIVE (NEGATIVE); URINE CAST NONE SEEN /LPF; URINE CRYSTAL NONE SEEN /HPF; URINE EPITHELIAL CELLS <10 /HPF (<10); URINE RBC <10 /HPF (<10); URINE SOURCE CLEAN CATCH; UROBILINOGEN URINE NORMAL
[2016-10-22 08:31] LABS: LEUKOCYTES URINE 2+ (NEGATIVE); NITRITE URINE NEGATIVE (NEGATIVE); URINE CULTURE PL NEEDED? YES; URINE WBC 20-40 /HPF (<10)
[2016-10-22] MEDS ORDERED: NS 1,000 ML IV SCH (10:37)
[2016-10-22] MEDS: PROTONIX IV SCH (11:06)
[2016-10-22] MEDS: DILAUDID IV PRN ×5 (11:06→23:59)
[2016-10-22] MEDS: ZOFRAN IV PRN ×3 (11:06→21:13)
[2016-10-22] MEDS: NS 1,000 ML IV SCH ×3 (12:15→21:15)
--- NOTE | 2016-10-22 15:29 | HISTORY AND PHYSICAL ---
CHIEF COMPLAINT: Abdominal pain. " I have pancreatitis again." HISTORY OF PRESENT ILLNESS: This is a very pleasant 35-year-old gentleman with a prior history of pancreatitis, having multiple admissions and emergency room visits for the same, it looks like dating back to May 2014. He comes in today complaining of abdominal pain, nausea and vomiting. He states the pain is epigastric, radiating to his right upper quadrant. It goes straight through to his back. He describes it as a sharp, as well as a cramping pain. It is alleviated and exacerbated by nothing. He denies any fever, chills, any diarrhea or constipation. He denies any alcohol use, stating it has been quite some time since he has had alcohol as he did not want to do anything that would exacerbate another attack. He was found to have an amylase of 294 and a lipase of 851 in the emergency room. He was given IV hydration as well as pain and nausea control. He has been admitted for further evaluation and treatment. PAST MEDICAL HISTORY: 1. Recurrent pancreatitis. 2. Gastroesophageal reflux disease. 3. Eczema. 4. History of alcohol abuse. PAST SURGICAL HISTORY: Noncontributory. SOCIAL HISTORY: He smokes about half a pack a day. He has for 15 years. According to the chart, he had his last alcohol around the end of May. He denies any illicit drug use. ALLERGIES: No known drug allergies. HOME MEDICATIONS: A list will be obtained. REVIEW OF SYSTEMS: A 14 point review of systems is discussed with the patient with pertinent positives stated in HPI. He denies chest pain, palpitations, dizziness, syncope, black or bloody vomitus, black or bloody stools any hematuria, dysuria, frequency, urgency. PHYSICAL EXAMINATION: GENERAL: This is a 35-year-old gentleman who is lying in the bed, in no distress. VITAL SIGNS: Blood pressure is 111/64 with a heart rate of 62, respirations are 18, temperature is 98.8 degrees oral with room air saturations of 99-100%. HEENT: Head is normocephalic, atraumatic. Pupils equal, round, react to light. EOMs are intact. Sclerae anicteric. Mucous membranes are moist. NECK: Supple with trachea midline. CARDIOVASCULAR: Regular rate and rhythm, S1, S2 appreciated. PULMONARY: Breath sounds are clear with no increased work of breathing noted. Chest does rise and fall symmetrically with respiration. GASTROINTESTINAL: Abdomen is soft with generalized tenderness primarily in the epigastric to right upper quadrant area with bowel sounds noted. BACK: No CVAT. No spine tenderness. MUSCULOSKELETAL: Good range of motion of joints. EXTREMITIES: No clubbing, cyanosis, or edema. Calves nontender. Pulses are palpable x4. NEUROLOGIC: He is alert and oriented x3. Cranial nerves 2-12 grossly intact. DIAGNOSTICS: WBC is 7.2, with hemoglobin 16.3, hematocrit 44.2, and platelets of 160,000. Sodium is 138, potassium 3.4, BUN 6, creatinine 0.8, with a glucose of 118. Amylase 294, lipase 851. Urinalysis is noted to have 3+ ketones with 20-40 microscopic white blood cells, and less than 10 epithelial cells and 1+ bacteria. ASSESSMENT AND PLAN: 1. Acute pancreatitis. He will remain nothing per oral. We will continue with IV hydration. We will trend amylase and lipase. We will give IV pain and nausea medication. Once his amylase and lipase are lower and we will attempt clear liquids and advance as tolerated. 2. Hypokalemia. We will trend his labs and replete as appropriate. 3. Tobacco use and abuse. I did discuss with the patient smoking cessation as well as ways to assist in cessation. 4. Gastroesophageal reflux disease. We will continue Protonix IV daily. 5. Deep venous thrombosis prophylaxis. We will use Sequential Compression Devices. For gastrointestinal prophylaxis, we will give Protonix as stated above. Further treatments pending hospital course. Dictated by ELSY Woodruff for Kp Lam MD cc: ELSY Woodruff MD
[2016-10-23] MEDS: NS 1,000 ML IV SCH ×8 (01:27→20:00)
[2016-10-23 06:43] LABS: HEMATOCRIT 40.2 % (42.0-52.0); HEMOGLOBIN 14.7 g/dL (14.0-18.0); MCH 35.9 PG (27-31); MCHC 36.6 g/dL (33-37); MPV 10.2 FL (7.4-10.4); RBC 4.1 XMIL (4.7-6.1)
[2016-10-23 07:08] LABS: AGAP 12; ALBUMIN 3.5 g/dL (3.5-5.0); ALKALINE PHOSPHATASE 55 U/L (32-122); AMYLASE 282 U/L (20-200); BUN 3 mg/dL (8-22); CALCIUM 8.1 mg/dL (8.8-10.2); CHLORIDE 101 mmol/L (98-107); COSMO 266; GOT 14 U/L (10-34); GPT 11 U/L (10-44); LIPASE 522 U/L (13-60); POTASSIUM 3.5 mmol/L (3.5-5.1); SODIUM 135 mmol/L (136-145); TCO2 23 mmol/L (25-35); TOTAL PROTEIN 5.9 g/dL (6.3-8.3)
--- NOTE | 2016-10-23 08:55 | PROGRESS NOTE ---
DATE: 10/23/2016 SUBJECTIVE: The patient notes that he is feeling a little bit better. Still having significant abdominal pain. States pain medications help, but does not last very long. OBJECTIVE: Vital Signs Reviewed: Temperature 98 degrees, pulse 62, respiratory 16, BP 119/77, satting 100% on room air. General: Patient is awake, alert, oriented. Currently in no respiratory distress. Pleasant to talk with. Neck: Supple. CV: Regular rate. Chest: Relatively clear. Abdomen: Soft. Extremities: Moves all extremities. Neurologic: No focal changes. Skin: Warm and dry. No rashes. ASSESSMENT: Pancreatitis, slightly improved. He is having less pain in his abdomen than he did yesterday, but still having significant pain. Will increase his Dilaudid. Discussed with patient again the perils of any alcohol, including an occasional drink. I also discussed with him that mouthwash is a cough syrup that certainly could also trigger this as well. We will continue to follow. Keep him on nothing by mouth for now. His labs are actually improving. Amylase and lipase are better than yesterday. We will continue to follow. We will recheck in the morning. Hopefully home soon. cc: Kp Lam MD
[2016-10-23] MEDS: DILAUDID IV PRN ×4 (09:17→23:48)
[2016-10-23] MEDS: SODIUM CHLORIDE 0.9% INJ SCH (12:27)
[2016-10-23] MEDS: PROTONIX IV SCH (12:27)
[2016-10-23] MEDS: ZOFRAN IV PRN ×3 (14:55→23:48)
[2016-10-24] MEDS: NS 1,000 ML IV SCH ×4 (00:14→23:29)
[2016-10-24] MEDS: DILAUDID IV PRN ×5 (04:28→23:28)
[2016-10-24] MEDS: ZOFRAN IV PRN (04:29)
[2016-10-24 06:17] LABS: HEMOGLOBIN 13.8 g/dL (14.0-18.0); MCH 35.4 PG (27-31); MCHC 36.3 g/dL (33-37); MCV 97.4 FL (81-99); MPV 10.3 FL (7.4-10.4); RBC 3.9 XMIL (4.7-6.1)
[2016-10-24 06:30] LABS: AGAP 8; ALBUMIN 3.4 g/dL (3.5-5.0); ALKALINE PHOSPHATASE 47 U/L (32-122); AMYLASE 159 U/L (20-200); BUN 3 mg/dL (8-22); CALCIUM 8.3 mg/dL (8.8-10.2); CHLORIDE 108 mmol/L (98-107); COSMO 278; GOT 14 U/L (10-34); GPT 9 U/L (10-44); LIPASE 178 U/L (13-60); POTASSIUM 3.6 mmol/L (3.5-5.1); SODIUM 141 mmol/L (136-145); TCO2 25 mmol/L (25-35); TOTAL PROTEIN 5.9 g/dL (6.3-8.3)
[2016-10-24] MEDS ORDERED: NORCO-10 PO PRN (08:30)
--- NOTE | 2016-10-24 09:07 | PROGRESS NOTE ---
DATE: 10/24/2016 SUBJECTIVE: The patient notes that he is feeling tremendously better this morning. He still is worried about going home. OBJECTIVE: Vital Signs: Temp 97, pulse 56, respiratory rate 18, BP 132/87, sat 100% on room air. General: The patient is awake, alert, currently in no respiratory distress. Speech is regular. Memory is intact. Neck: Supple. CV: Regular rate. Chest: Clear. Abdomen: Soft. Much less tender. Still has mild epigastric tenderness. Extremities: Moves all extremities. Neurologic: No changes. LABORATORY DATA: CBC normal. CMP essentially normal. Amylase 159, lipase 178. ASSESSMENT: 1. Pancreatitis, acute on chronic. Again, discussed with the patient, the perils of any alcohol consumption. The patient was on pancreatic enzymes at home. Will need to restart these. 2. Hypokalemia, resolved 3. Chronic tobacco abuse. PLAN: Will advance the patient's diet. Will attempt to tar heat exchanger cleaner to p.o. medications. Will decrease his IV fluids to 75. Will continue to follow. Further orders as needed. cc: Kp Lam MD
[2016-10-24] MEDS: SODIUM CHLORIDE 0.9% INJ SCH (09:46)
[2016-10-24] MEDS: PROTONIX IV SCH (09:46)
[2016-10-25 06:03] LABS: AGAP 6; AMYLASE 101 U/L (20-200); BUN 2 mg/dL (8-22); CALCIUM 8.9 mg/dL (8.8-10.2); CHLORIDE 105 mmol/L (98-107); COSMO 276; LIPASE 111 U/L (13-60); POTASSIUM 3.6 mmol/L (3.5-5.1); SODIUM 140 mmol/L (136-145); TCO2 29 mmol/L (25-35)
[2016-10-25] MEDS: ZOFRAN IV PRN (06:29)
[2016-10-25] MEDS: DILAUDID IV PRN (06:29)
[2016-10-25] MEDS ORDERED: DILAUDID IV PRN (07:10)
[2016-10-25] MEDS: PROTONIX IV SCH (10:11)
[2016-10-25] MEDS: NS 1,000 ML IV SCH (11:57)
[2016-10-25 15:42] VITALS: BP 116/72
--- NOTE | 2016-10-25 17:37 | DISCHARGE SUMMARY ---
ADMISSION DATE: 10/22/2016 DISCHARGE DATE: 10/25/2016 DIAGNOSES: 1. Pancreatitis acute on chronic. 2. Hypokalemia resolved. 3. Chronic tobacco abuse. HOSPITAL COURSE: Mr. Mcelroy presented to the emergency room complaining of abdominal pain, nausea and vomiting. He stated that he had pancreatitis again. He was found to have an amylase of 294, lipase of 851. He was NPO for the first 24 hours. The pain was controlled with IV medications. Amylase and lipase did continue to fall today with amylase 101 and lipase 111. His diet has slowly been advanced. He did tolerate a 100% GI soft diet with no abdominal pain, nausea or vomiting. DISCHARGE PHYSICAL EXAMINATION: Cardiovascular: Regular rate and rhythm. S1, S2 appreciated. Pulmonary: Breath sounds are clear. No increased work of breathing noted. Gastrointestinal: Abdomen is soft, nontender, nondistended with bowel sounds in all 4 quadrants. Back: No CVAT. No spine tenderness. DISCHARGE MEDICATIONS: None. DISCHARGE DIET: GI soft and advance to regular as tolerated. DISCHARGE INSTRUCTIONS: It was discussed with the patient the perils of any alcohol including an occasional drink, even mouthwash or cough syrup with alcohol could trigger an acute pancreas attack in his setting of chronic pancreatitis. DISPOSITION: He is being discharged home in stable condition with his . FOLLOWUP: He has been instructed to follow up with his primary care physician in the next 1-2 weeks, sooner if needed. Dictated by ELSY Woodruff for Kp Lam MD cc: ELSY Woodruff MD
== END 2016-10-25 17:35 | disposition home or self-care (01) ==
LOC: P.MEDSURG 05:53 → P.ED 05:53 → OBSVTOIN 08:54
PROVIDERS: ATTEND Family Medicine

== ENCOUNTER 2018-04-28 10:23 | Inpatient (IN) ==
[2018-04-28] MEDS ORDERED: ZOFRAN IV ONE (11:03)
[2018-04-28] MEDS ORDERED: NS 1,000 ML IV ONE (11:03)
[2018-04-28] MEDS ORDERED: MORPHINE IV ONE (11:03)
[2018-04-28 11:12] LABS: BASO# 0.03 X1000 (0.0-0.2); BASO% 0.3 % (0.0-0.8); EOS# 1.21 X1000 (0.0-0.7); EOS% 10.5 % (0.0-10.0); HEMATOCRIT 40.8 % (42.0-52.0); HEMOGLOBIN 14.5 g/dL (14.0-18.0); IMM GRAN# 0.04 X1000 (0.0-0.04); IMM GRAN% 0.3 % (0.0-0.5); LYMPH% 34.7 % (20.5-51.1); MCH 34.9 PG (27-31); MCHC 35.5 g/dL (33-37); MCV 98.1 FL (81-99); MONO# 0.75 X1000 (0.11-0.59); MONO% 6.5 % (1.7-9.3); NEUT# 5.51 X1000 (1.4-6.5); NEUT% 47.7 % (42.2-75.2); PLT 208 X1000 (130-400); RBC 4.16 XMIL (4.7-6.1); RDW 12.9 % (11.5-14.5); WBC 11.54 X1000 (4.8-10.8)
[2018-04-28 11:24] LABS: AGAP 16; ALBUMIN 4.7 g/dL (3.5-5.0); ALKALINE PHOSPHATASE 58 U/L (32-122); AMYLASE 1188 U/L (20-200); BUN 8 mg/dL (8-22); CALCIUM 9.1 mg/dL (8.8-10.2); CHLORIDE 107 mmol/L (98-107); COSMO 287; CREATININE 0.8 mg/dL (0.7-1.2); ESTIMATED GFR > 60; GLUCOSE 99 mg/dL (70-104); GOT 17 U/L (10-34); GPT 9 U/L (10-44); POTASSIUM 3.2 mmol/L (3.5-5.1); SODIUM 145 mmol/L (136-145); TCO2 22 mmol/L (25-35); TOTAL PROTEIN 7.9 g/dL (6.3-8.3)
[2018-04-28 11:50] LABS: LIPASE > 3000 U/L (13-60)
[2018-04-28] MEDS ORDERED: DILAUDID IV ONE (13:02)
--- NOTE | 2018-04-28 13:55 | PROVIDER DOCUMENTATION ---
This chart was entered by Zoey Thomason Scribe, acting as scribe for Lizzy Mccauley MD. HPI-Abdominal Pain/GI Problem - General Chief Complaint: Epigastric Pain Stated Complaint: CHEST PAIN Time Seen by Provider: 04/28/18 10:28 Source: patient, family () Allergies/Adverse Reactions: Patient Allergies Allergy/AdvReac Type Severity Reaction Status Date / Time No Known Allergies Allergy Verified 10/20/17 18:26 Home Medications: Home Medication List Medication Instructions Recorded Confirmed Last Taken Type Hydrocodone/APAP 7.5 mg/325 mg 1 ea PO Q6H PRN PRN #12 tab 08/21/17 10/21/1710/01 09:00 Rx [[place]-7.5] Omeprazole 40 mg PO DAILY #30 capsule.dr 10/23/17 Unknown Rx Ondansetron [Zofran] 4 mg PO Q6H PRN PRN #20 tab 10/23/17 Unknown Rx Pantoprazole Sodium 1 tab PO DAILY 10/23/17 10/23/17 Unknown History Promethazine [Phenergan] 25 mg PO Q6H PRN PRN #20 tab 10/23/17 Unknown Rx - History of Present Illness-ABD Nature of Presenting Problems: Patient is a 37 year old male who presents to the ED via EMS with epigastric abdominal pain. Patient states nausea and vomiting. Patient states pain woke him from his sleep this morning. Patient states history of pancreatitis. Patient states drinking 3 shot of whiskey yesterday. Abdominal Pain Onset Location: reports: epigastric Pain Radiation: reports: no radiation Quality of Pain: reports: aching, tightness Severity in ED: reports: mild Onset/Duration: reports: this morning Timing: reports: still present Activities at Onset: reports: light activity Modifying Factors: improves with: nothing Associated Symptoms: reports: diaphoresis, nausea, vomiting Last BM: this morning Dark Stools Present?: reports: none noticed Rectal Bleeding: reports: none Rectal Pain: reports: none Emesis Description: reports: clear Bruising or Bleeding Gums?: No Similar Symptoms Previously?: No Recently seen or treated by another doctor?: No Review of Systems - Adult - REVIEW OF SYSTEMS - ADULT Constitutional: reports: no symptoms reported Eyes: reports: no symptoms reported Ears, Nose, Mouth & Throat: reports: no symptoms reported Cardiovascular: reports: no symptoms reported Respiratory: reports: no symptoms reported Gastrointestinal: reports: abdominal pain (epigastric), nausea, vomiting. denies: diarrhea Genitourinary: reports: no symptoms reported Musculoskeletal: reports: no symptoms reported Integumentary: reports: no symptoms reported Neurological: reports: no symptoms reported Psychiatric: reports: no symptoms reported Endocrine: reports: no symptoms reported Hematologic/Lymphatic: reports: no symptoms reported Allergic/Immunologic: reports: no symptoms reported All Other Systems: Reviewed and Negative Past History - Adult - PAST MEDICAL HISTORY-ADULT Review of Records: reports: Nursing Assessment Review, Medications Reviewed, Social history reviewed & non-contributory. Major Childhood Illnesses: reports: denies history Cardiovascular: reports: denies history Respiratory: reports: denies history Gastrointestinal: reports: pancreatitis Obstetrical/Gynecological: reports: denies history Genitourinary: reports: denies history Musculoskeletal: reports: denies history Neurological: reports: denies history Psychiatric: reports: denies history Endocrine/Immune: reports: denies history Other Conditions: reports: denies history - PRIOR SURGERIES/PROCEDURES Surgical/Procedure History: reports: none - PRIOR HOSPITALIZATIONS Prior Hospitalizations: reports: for similar symptoms - IMMUNIZATION STATUS Childhood Immunizations: See Nurse Assessment Flu Vaccine: See Nurse Assessment - FAMILY HISTORY Family History: reviewed, not pertinent - SOCIAL HISTORY Smoking: cigarettes, less than 1 pack/day Provider spent 3-5 mins advising pt. on dangers of tobacco.: Discussed manners to quit use, and f/u contacts for add'l counseling. Substance Use: alcohol Alcohol Use Frequency: occasionally Number of drinks per typical drinking period:: 3-4 drinks Living Situation: family Physical Exam-General - PHYSICAL EXAM-ADULT Initial Vital Signs Reviewed: Yes - CONSTITUTIONAL General Appearance: alert, mild distress - HEAD, EARS, NOSE, MOUTH & THROAT HENMT: other (dry mucous membranes) - RESPIRATORY Respiratory: chest non-tender, lungs clear, normal breath sounds - CARDIOVASCULAR Cardiovascular: normal peripheral pulses, regular rate, rhythm - GASTROINTESTINAL (ABDOMEN) Abdominal Exam: normal bowel sounds, soft, tenderness (epigastric) - MUSCULOSKELETAL Extremity: non-tender, normal inspection - SKIN Integumentary: normal color, normal turgor, warm/dry - NEUROLOGIC Neurologic: grossly normal - PSYCHIATRIC Psych/Mental Status: normal mood/affect, oriented x 3 Progress - PLAN OF CARE/RESULTS Progress/Plan/Lab Results: Vital Signs - 8 hr 04/28/18 10:23 Temperature 96.9 F L Pulse Rate 80 Respiratory Rate 18 Blood Pressure 112/067 O2 Sat by Pulse Oximetry 100 Result Diagrams: 04/28/18 10:25 04/28/18 10:25 - EKG 1 Time of EKG reading by physician:: 10:24 EKG Read and Signed by:: Lizzy Mccauley EKG Interpretation (*Must complete 3 of following elements*): Abnormal Rate: 73 Rhythm: normal sinus rhythm Aladdin: normal MT Interval: normal Comments: nonspecific T wave abnormality. - CONSULTS/PCP/HOSPITALIST Notification #1 *Consult/PCP/Hospitalist*: Dr. Haas Time Discussed: 13:52 Reason/Comments: Dr. Mccauley consulted with Dr. Haas about patient. Consult Disposition: Will see in ED, Admit Departure - Departure Date of Disposition Decision: 04/28/18 Time of Disposition Decision: 13:52 DIAGNOSIS: Pancreatitis, Abdominal pain Disposition: ADMITTED INPATIENT 09 Certified Medical Emergency: Emergent Condition: Stable Referrals and Follow-Ups: None,PCP [Primary Care Provider] - - Critical Care Note This patient required my direct & personal management of CC.: No Attestation - Physician/ JOSHUA Attestation The physician spent face to face time with patient:: Yes Advanced Practice Provider documentation review:: Supervising physician onsite and consulted in the evaluation and care of this patient. The physician did have a face to face encounter with the patient. This chart was documented by the indicated scribe, (Zoey Thomason Scribe) and accurately reflects the services I performed and decisions made by me, Lizzy Mccauley MD, as attested by the provider's signature.
[2018-04-28 14:10] LABS: BILIRUBIN URINE NEGATIVE (NEGATIVE); BLOOD URINE NEGATIVE (NEGATIVE); CLARITY CLEAR (CLEAR); COLOR YELLOW; GLUCOSE URINE NEGATIVE (NEGATIVE); KETONE URINE 2+(Moderate) mg/dL (NEGATIVE); LEUKOCYTES URINE TRACE (NEGATIVE); NITRITE URINE NEGATIVE (NEGATIVE); PROTEIN URINE NEGATIVE (NEGATIVE); SP GRAVITY URINE 1.015; UROBILINOGEN URINE NORMAL
[2018-04-28 14:23] LABS: UR AMPHETAMINES QUAL NONE DETECTED (NONE DETECT); UR BARBITUATES QUAL NONE DETECTED (NONE DETECT); UR BENZODIAZEPIN QUAL NONE DETECTED (NONE DETECT); UR CANNABINOIDS QUAL NONE DETECTED (NONE DETECT); UR COCAINE QUAL NONE DETECTED (NONE DETECT); UR METHADONE QUAL NONE DETECTED (NONE DETECT); UR METHAMPHETAMINE QUAL NONE DETECTED (NONE DETECT); UR OPIATES QUAL PRESUMPTIVE POSITIVE (NONE DETECT); UR OXYCODONE QUAL NONE DETECTED (NONE DETECT); UR PCP QUAL NONE DETECTED (NONE DETECT); UR PROPOXYPHENE QUAL NONE DETECTED (NONE DETECT); UR TCA QUAL NONE DETECTED (NONE DETECT)
[2018-04-28 14:25] LABS: URINE BACTERIA NEGATIVE /HFP; URINE CAST NONE SEEN /LPF; URINE CRYSTAL NONE SEEN /HPF; URINE EPITHELIAL CELLS <10 /HPF (<10); URINE RBC <10 /HPF (<10); URINE SMALL ROUND CELLS TRANSITIONAL PRESENT; URINE SOURCE CLEAN CATCH; URINE WBC <10 /HPF (<10); URINE YEAST NONE SEEN /HPF
[2018-04-28] MEDS ORDERED: MORPHINE IV PRN (16:00)
[2018-04-28] MEDS ORDERED: LR 1,000 ML IV ONE ×2 (16:00→16:54)
--- NOTE | 2018-04-28 16:04 | Diag Imaging Result Doc PS360 ---
EXAM: CT ABD/PELVIS W/PO AND IV CON HISTORY: recurrent pancreatitis TECHNIQUE: CT abdomen and pelvis with intravenous contrast COMPARISON: 10/20/2017 FINDINGS: No calcified gallstones. There is fluid and inflammation about the pancreas. Multiple pancreatic calcifications are found in the tail. No well-defined pseudocyst. There is fatty infiltration of the liver. No splenomegaly. Normal adrenal glands and kidneys. No hydronephrosis. Normal aorta. No bowel obstruction. Urinary bladder is distended and is normal. Normal appendix. No abscess. IMPRESSION: Recurrent pancreatitis. No pseudocyst. This exam was performed using automated exposure control, adjustment of mA or kV according to patient size, and/or use of iterative reconstruction technique. Electronically signed by Pancho Palomino 04/28/2018 4:01 PM
[2018-04-28] MEDS: PROTONIX IV SCH (18:19)
[2018-04-28] MEDS: SODIUM CHLORIDE 0.9% INJ SCH (18:19)
[2018-04-28] MEDS: ZOFRAN IV PRN (18:19)
[2018-04-28] MEDS: POTASSIUM CHLORIDE 20 MEQ/SWI 20 MEQ/100 ML IVPB IV SCH ×2 (20:08→22:20)
[2018-04-28] MEDS ORDERED: ATIVAN IV PRN (20:25)
--- NOTE | 2018-04-28 20:48 | HISTORY AND PHYSICAL ---
CHIEF COMPLAINT: Abdominal pain, chest pain. HISTORY OF PRESENT ILLNESS: This is a 37-year-old male with history of pain and pancreatitis who comes in with abdominal pain. The patient states the pain is worse in the middle of his stomach, radiates to his back. He has had no change in meds. He has had several episodes of pancreatitis previously. The last time he has been hospitalized all told a couple times in October, once in May, these are in 2016, once in 2015 and 2014, all associated with alcohol exposure. He admits to drinking 3 shots of [place] and he ate spaghetti and lasagna, and then started to feel worse. Workup in the ER consistent with pancreatitis and he was admitted as such. Pt describes pain as sharp starting at 10am, the day of admission. Pt states movement, eating makes it worse. Pain is severe, sharp, 10/10. Pt's pain is similar to previous episodes of pancreatitis. PAST MEDICAL HISTORY: Again, GERD and recurrent pancreatitis. PAST SURGICAL HISTORY: I do not think he has had any major history in the past alcohol abuse. SOCIAL HISTORY: He smokes half pack a day for about 15 years. Alcohol is intermittent, and he is not really admitting to any binge drinking. ALLERGIES: No known drug allergies. MEDICATIONS: Are being compiled. Protonix, Falun, Prilosec, Zofran, Phenergan. REVIEW OF SYSTEMS: Positive weakness. Positive fatigue. Positive anorexia. Central Nervous System: No headaches, vision changes. Chest: Chest pain occasionally associated with this. No palpitations. Respiratory: Shortness of breath, cough. Gastrointestinal: Is having nausea, vomiting. Musculoskeletal: Positive back pain. Otherwise, negative x a 10 point review of systems. PHYSICAL EXAMINATION: VITAL SIGNS: Blood pressure 131/80, heart rate of 70, respiratory rate 18, temp was 97.3. GENERAL: A well-developed male in no acute distress. HEENT: Head exam was normocephalic, atraumatic. Eye exam: Pupils equal, round , reactive to light. Extraocular moves were intact. Ear, nose and throat exam: Had moist mucous membranes. NECK: Supple. CARDIOVASCULAR: Regular rate and rhythm. No murmurs, gallops or rubs. PULMONARY: Bilateral breath sounds. Clear to auscultation. GASTROINTESTINAL: Soft, nontender, nondistended. Bowel sounds are positive. EXTREMITIES: No clubbing or cyanosis. LYMPHATIC: No peripheral edema. NEUROLOGIC: Nonfocal. LABORATORY DATA: His lipase is greater than 3000. His amylase is 1188. Both of those numbers have never been higher. White count is 11, hematocrit is 40. CT scan just showed pancreatitis. No pseudocyst. ASSESSMENT AND PLAN: 1. Briefly, this 37-year-old male with history of pancreatitis, alcohol abuse and he has persistent acute pancreatitis. We will keep n.p.o., continue IV fluids, pain control, nausea control, most likely alcoholic. Will check a GGT and see how he does. 2. Hypokalemia. Will supplement and follow. 3. Alcohol abuse. Have counseled on cessation. We will add Ativan if he needs something for withdrawal, but apparently he does not drink on a regular basis. cc: Shaheen Haas MD MTDD
[2018-04-28] MEDS: DILAUDID IV PRN (22:16)
[2018-04-29] MEDS: DILAUDID IV PRN ×5 (04:12→22:22)
[2018-04-29 06:12] LABS: BASO# 0.01 X1000 (0.0-0.2); BASO% 0.1 % (0.0-0.8); EOS# 0.42 X1000 (0.0-0.7); HEMATOCRIT 38.2 % (42.0-52.0); HEMOGLOBIN 13.6 g/dL (14.0-18.0); IMM GRAN# 0.02 X1000 (0.0-0.04); IMM GRAN% 0.2 % (0.0-0.5); LYMPH# 1.46 X1000 (1.2-3.4); LYMPH% 14.1 % (20.5-51.1); MCH 34.3 PG (27-31); MCHC 35.6 g/dL (33-37); MCV 96.5 FL (81-99); MONO# 0.69 X1000 (0.11-0.59); MONO% 6.6 % (1.7-9.3); MPV 10.3 FL (7.4-10.4); NEUT# 7.79 X1000 (1.4-6.5); PLT 171 X1000 (130-400); RBC 3.96 XMIL (4.7-6.1); RDW 12.4 % (11.5-14.5); WBC 10.39 X1000 (4.8-10.8)
[2018-04-29 06:42] LABS: AGAP 12; ALBUMIN 4.1 g/dL (3.5-5.0); ALKALINE PHOSPHATASE 54 U/L (32-122); AMYLASE 537 U/L (20-200); BUN 6 mg/dL (8-22); CALCIUM 8.8 mg/dL (8.8-10.2); CHLORIDE 101 mmol/L (98-107); COSMO 270; CREATININE 0.5 mg/dL (0.7-1.2); ESTIMATED GFR > 60; GLUCOSE 80 mg/dL (70-104); GOT 17 U/L (10-34); GPT 8 U/L (10-44); POTASSIUM 3.7 mmol/L (3.5-5.1); SODIUM 137 mmol/L (136-145); TCO2 24 mmol/L (25-35); TOTAL PROTEIN 6.9 g/dL (6.3-8.3)
[2018-04-29 06:46] LABS: LIPASE 526 U/L (13-60)
[2018-04-29] MEDS: ZOFRAN IV PRN ×3 (08:12→17:35)
--- NOTE | 2018-04-29 08:26 | Diag Imaging Result Doc PS360 ---
EXAM: US GB < RUQ (LIMITED) INDICATION: Pancreatitis COMPARISON: 03/22/2015 FINDINGS: No gallstones or gallbladder wall thickening is appreciated. There is a small amount of fluid around the gallbladder and liver that is probably emanating from the adjacent pancreas. The common bile duct is normal in diameter. Sonographic Nails's sign was reported to be negative. The liver is grossly unremarkable. Portal venous flow is hepatopetal. The pancreatic parenchyma is heterogeneous consistent with known pancreatitis. No loculated fluid collection is identified. The aorta and IVC are grossly unremarkable. The right kidney is grossly unremarkable. IMPRESSION: Heterogeneous pancreatic parenchyma consistent with known pancreatitis. No gallstones are identified. Electronically signed by Tyrone Dsouza 04/29/2018 8:24 AM
[2018-04-29] MEDS: LR 1,000 ML IV SCH (16:57)
[2018-04-29 17:07] LABS: AGAP 13; ALBUMIN 4.3 g/dL (3.5-5.0); ALKALINE PHOSPHATASE 52 U/L (32-122); BUN 6 mg/dL (8-22); CALCIUM 9.1 mg/dL (8.8-10.2); CHLORIDE 98 mmol/L (98-107); COSMO 275; CREATININE 0.7 mg/dL (0.7-1.2); ESTIMATED GFR > 60; GLUCOSE 88 mg/dL (70-104); GOT 15 U/L (10-34); GPT 8 U/L (10-44); SODIUM 139 mmol/L (136-145); TCO2 29 mmol/L (25-35)
[2018-04-29] MEDS: PROTONIX IV SCH (17:53)
[2018-04-29] MEDS: SODIUM CHLORIDE 0.9% INJ SCH (17:53)
[2018-04-30] MEDS: DILAUDID IV PRN ×5 (04:43→22:11)
[2018-04-30] MEDS: LR 1,000 ML IV SCH ×4 (05:45→21:13)
[2018-04-30 06:19] LABS: BASO# 0.02 X1000 (0.0-0.2); BASO% 0.3 % (0.0-0.8); EOS# 0.89 X1000 (0.0-0.7); EOS% 12.1 % (0.0-10.0); HEMATOCRIT 36.4 % (42.0-52.0); IMM GRAN# 0.01 X1000 (0.0-0.04); IMM GRAN% 0.1 % (0.0-0.5); LYMPH# 1.36 X1000 (1.2-3.4); LYMPH% 18.5 % (20.5-51.1); MCH 34.5 PG (27-31); MCHC 35.7 g/dL (33-37); MCV 96.6 FL (81-99); MONO# 0.46 X1000 (0.11-0.59); MONO% 6.3 % (1.7-9.3); MPV 10.1 FL (7.4-10.4); NEUT# 4.61 X1000 (1.4-6.5); NEUT% 62.7 % (42.2-75.2); PLT 160 X1000 (130-400); RBC 3.77 XMIL (4.7-6.1); RDW 12.2 % (11.5-14.5); WBC 7.35 X1000 (4.8-10.8)
[2018-04-30 06:32] LABS: AMYLASE 260 U/L (20-200); GGT 12 U/L (11-50)
[2018-04-30 06:33] LABS: LIPASE 163 U/L (13-60); TRIGLYCERIDES 104 mg/dL (39-160)
[2018-04-30] MEDS: ZOFRAN IV PRN ×4 (09:21→22:11)
--- NOTE | 2018-04-30 11:18 | PROGRESS NOTE ---
DATE: 04/30/2018 SUBJECTIVE: This morning, Mr. Mcelroy refers to be doing a little better. Still has some abdominal pain, but nausea and vomiting. OBJECTIVELY: Vitals: Blood pressure is 117/69, pulse is 63, respiration is 18, temperature is 98.0. General: Mr. Mcelroy is a 37-year-old gentleman. He is in bed in no distress. Mucosa: Is pink and moist. Anicteric. Acyanotic. Neck: Supple. Chest: Good air entry bilateral. There was no crepitations, no rhonchi. Cardiovascular: Regular rate and rhythm. No murmurs, no rubs, no gallops. Abdomen: Soft. It is minimally tender in the epigastrium. Bowel sounds present. No hepatosplenomegaly. MILLING MACHINIST: Patient is awake, alert, and oriented. There is no focal neurological deficit. LABORATORY DATA: WBC is 7.35, hemoglobin is 13.0, platelet count of 160,000. Chemistry is also reviewed. The patient's amylase is down to 169, and lipase is all the way down to 163. Urine culture is no growth. CURRENT MEDICATIONS: Have all been reviewed. IMAGING STUDIES: Did reveal recurrent pancreatitis. No pseudocyst. ASSESSMENT: 1. Acute recurrent pancreatitis, likely alcohol induced. The patient seems to be doing progressively better. He is currently nothing by mouth. We are going to start him on clear liquids to see if he tolerated it, then we will advance it as tolerated. 2. History of alcohol abuse. Patient has been counseled. 3. Tobacco abuse. Patient has been counseled. 4. Hypokalemia, improved. 5. Clinical volume depletion, improved. So in general, Mr. Mcelroy is doing fairly okay. He has been counseled extensively about alcohol and tobacco cessation. He seems to be improving clinically, so we are going to start him on some clear liquids today and advance it as he tolerates. If he is doing better, hopefully the next 24 hours we can potentially discharge him. I will check his C-reactive protein. cc: Amor Johnson MD
[2018-04-30] MEDS: SODIUM CHLORIDE 0.9% INJ SCH (17:45)
[2018-04-30] MEDS: PROTONIX IV SCH (17:45)
[2018-05-01] MEDS: DILAUDID IV PRN ×5 (03:55→21:06)
[2018-05-01] MEDS: LR 1,000 ML IV SCH ×3 (03:55→19:25)
--- NOTE | 2018-05-01 08:38 | PROGRESS NOTE ---
DATE: 05/01/2018 SUBJECTIVE: The patient has some epigastric discomfort, but denies having any nausea and vomiting. He feels better as compared to the previous days. OBJECTIVE: Vital Signs: Temperature 97.8 degrees, pulse 64 per minute, respiratory rate 18 per minute, blood pressure 117/70, pulse oximetry 100% on room air. General: The patient is alert and oriented x3. He does not appear to be in any acute distress. Cardiovascular System: First and second heart sounds are audible without any murmurs or gallops. Respiratory System: Bilateral lung air entry is good without any rales or rhonchi. Gastrointestinal System: The epigastric area is mild to moderately tender on deep palpation. No guarding or rigidity are present. Also, there is no rebound tenderness. Normal bowel sounds are present. Musculoskeletal System: No deformities are present. DIAGNOSTIC DATA: CBC and comprehensive metabolic panel are nondiagnostic. Amylase was found to be 260 and lipase is 163. All of these labs were done yesterday. IMPRESSION: Abdominal pain secondary to acute pancreatitis. PLAN: Will continue with IV fluids and keep the patient on clear liquids. I am going to repeat CBC, CMP, amylase, and lipase in the morning tomorrow. Will keep the patient here at the hospital until he improves and starts to tolerate p.o. intake. cc: MD Amor Mckeon MD
[2018-05-01] MEDS: ZOFRAN IV PRN ×3 (09:01→17:54)
[2018-05-01] MEDS: SODIUM CHLORIDE 0.9% INJ SCH (17:13)
[2018-05-01] MEDS: PROTONIX IV SCH (17:13)
[2018-05-02] MEDS: LR 1,000 ML IV SCH ×5 (04:01→19:21)
[2018-05-02] MEDS: DILAUDID IV PRN ×2 (04:02→08:30)
[2018-05-02 05:39] LABS: BASO# 0.02 X1000 (0.0-0.2); BASO% 0.3 % (0.0-0.8); EOS# 0.84 X1000 (0.0-0.7); EOS% 14.6 % (0.0-10.0); HEMATOCRIT 35.4 % (42.0-52.0); HEMOGLOBIN 12.5 g/dL (14.0-18.0); LYMPH# 1.58 X1000 (1.2-3.4); LYMPH% 27.5 % (20.5-51.1); MCH 34.1 PG (27-31); MCHC 35.3 g/dL (33-37); MCV 96.5 FL (81-99); MONO# 0.36 X1000 (0.11-0.59); MONO% 6.3 % (1.7-9.3); MPV 10.1 FL (7.4-10.4); NEUT# 2.94 X1000 (1.4-6.5); NEUT% 51.3 % (42.2-75.2); PLT 165 X1000 (130-400); RBC 3.67 XMIL (4.7-6.1); RDW 11.7 % (11.5-14.5); WBC 5.74 X1000 (4.8-10.8)
[2018-05-02 06:06] LABS: AGAP 9; ALBUMIN 3.7 g/dL (3.5-5.0); ALKALINE PHOSPHATASE 43 U/L (32-122); AMYLASE 108 U/L (20-200); BUN 3 mg/dL (8-22); CALCIUM 8.9 mg/dL (8.8-10.2); CHLORIDE 104 mmol/L (98-107); COSMO 278; CREATININE 0.7 mg/dL (0.7-1.2); ESTIMATED GFR > 60; GLUCOSE 97 mg/dL (70-104); GOT 13 U/L (10-34); GPT 7 U/L (10-44); LIPASE 77 U/L (13-60); POTASSIUM 3.5 mmol/L (3.5-5.1); SODIUM 141 mmol/L (136-145); TCO2 28 mmol/L (25-35); TOTAL PROTEIN 6.2 g/dL (6.3-8.3)
[2018-05-02] MEDS: ZOFRAN IV PRN ×2 (08:30→16:18)
--- NOTE | 2018-05-02 11:41 | PROGRESS NOTE ---
DATE: 05/02/2018 SUBJECTIVE: Patient feels better this morning, but still has some epigastric discomfort. He denies having any other complaints. He has been tolerating clear liquids. OBJECTIVE: Vital Signs: Temperature 97.7 degrees, pulse 60 per minute, respiratory rate 20 per minute, blood pressure 118/74, pulse oximetry 99% on room air. General: Patient is alert and oriented x3. He does not appear to be in any acute distress. Cardiovascular System: First and second heart sounds are audible without any murmurs or gallops. Respiratory System: No respiratory distress noted. Bilateral lung air entry is good without any rales or rhonchi. Gastrointestinal System: Abdomen is soft and minimally tender on deep palpation in the epigastric area. No rebound tenderness or guarding were noted. Bowel sounds were normal. DIAGNOSTIC DATA: CBC and comprehensive metabolic panel are nondiagnostic. Amylase has normalized to 1.8 and lipase has also improved to 77. IMPRESSION: Abdominal pain secondary to acute pancreatitis with history of alcohol abuse. PLAN: We are going to continue with IV fluids, and I am going to advance diet to full liquid. I am going to discontinue hydromorphone and lorazepam since I do not believe he needs those medicines anymore. We will continue to provide him Protonix 40 mg IV daily and give him Zofran 4 mg IV as needed for nausea. He probably will be able to be discharged home tomorrow if the repeat labs remain getting better. cc: MD Amor Mckeon MD
[2018-05-02] MEDS: TORADOL IV PRN (16:17)
[2018-05-02] MEDS: SODIUM CHLORIDE 0.9% INJ SCH (18:35)
[2018-05-02] MEDS: PROTONIX IV SCH (18:35)
[2018-05-03] MEDS: TORADOL IV PRN (00:26)
[2018-05-03] MEDS: LR 1,000 ML IV SCH ×2 (03:22→06:23)
[2018-05-03 07:12] LABS: BASO# 0.03 X1000 (0.0-0.2); BASO% 0.5 % (0.0-0.8); EOS# 1.05 X1000 (0.0-0.7); HEMATOCRIT 37.9 % (42.0-52.0); HEMOGLOBIN 13.3 g/dL (14.0-18.0); LYMPH# 1.65 X1000 (1.2-3.4); LYMPH% 29.9 % (20.5-51.1); MCH 33.5 PG (27-31); MCHC 35.1 g/dL (33-37); MCV 95.5 FL (81-99); MONO# 0.33 X1000 (0.11-0.59); MPV 10.2 FL (7.4-10.4); NEUT# 2.46 X1000 (1.4-6.5); NEUT% 44.6 % (42.2-75.2); PLT 178 X1000 (130-400); RBC 3.97 XMIL (4.7-6.1); RDW 11.4 % (11.5-14.5); WBC 5.52 X1000 (4.8-10.8)
[2018-05-03 07:47] LABS: AGAP 12; ALKALINE PHOSPHATASE 48 U/L (32-122); AMYLASE 113 U/L (20-200); BUN 5 mg/dL (8-22); CHLORIDE 104 mmol/L (98-107); COSMO 282; CREATININE 0.7 mg/dL (0.7-1.2); ESTIMATED GFR > 60; GLUCOSE 89 mg/dL (70-104); GOT 14 U/L (10-34); GPT 8 U/L (10-44); LIPASE 89 U/L (13-60); POTASSIUM 3.8 mmol/L (3.5-5.1); SODIUM 143 mmol/L (136-145); TCO2 27 mmol/L (25-35); TOTAL PROTEIN 6.4 g/dL (6.3-8.3)
--- NOTE | 2018-05-03 11:01 | DISCHARGE SUMMARY ---
ADMISSION DATE: 04/28/2018 DISCHARGE DATE: 05/03/2018 DISCHARGE DIAGNOSES: 1. Abdominal pain secondary to acute pancreatitis. 2. Alcohol abuse. HOSPITAL COURSE: This is a 37-year-old, gentleman who was admitted to the hospital with epigastric abdominal pain that was found to be secondary to acute pancreatitis. He has had previous hospital admissions for similar issues. His amylase and lipase were significantly elevated on admission. His amylase was found to be 1188 and lipase more than 3000 on admission. His amylase has normalized to 113 and lipase is also significantly improved to 89. He is feeling better and his abdominal pain has improved. He has been tolerating food and, therefore, we are going to let him go home today. DISCHARGE MEDICATIONS: 1. Creon 6000 unit capsule 1 capsule orally 3 times a day with meals. 2. Hydrocodone/acetaminophen 7.5 mg/325 mg orally up to 3 times a day as needed for pain, 15 tablets with no refills. FOLLOWUP: He is advised to follow up with his PCP in 1 to 2 weeks. cc: MD Amor Mckeon MD
[2018-05-03 14:27] VITALS: BP 113/70
== END 2018-05-03 15:05 | disposition home or self-care (01) | DRG 440 ==
LOC: P.ED 10:23 → SUATTDRO 15:29 → P.MEDSURG 15:29
PROVIDERS: ADMIT Internal Medicine; ATTEND Internal Medicine
CPT/HCPCS: 36415; 74177; 76705; 80053; 80104; 80301; 80305; 81001; 82150; 82784; 82787; 82977; 83690; 84478; 85025; 86140; 87088; 93005; 96374; 96375; 99285; C9113; G0431; G0434; G0477; J1170; J1885; J2270; J2405; J3480; J7030; J7120; Q9967; S0164

== ENCOUNTER 2019-02-15 16:23 | Inpatient (IN) ==
--- NOTE | 2019-02-15 17:25 | PROVIDER DOCUMENTATION ---
HPI-Abdominal Pain/GI Problem - General Chief Complaint: Abdominal Pain Stated Complaint: ABD PAIN Time Seen by Provider: 02/15/19 16:33 Source: patient Allergies/Adverse Reactions: Patient Allergies Allergy/AdvReac Type Severity Reaction Status Date / Time No Known Allergies Allergy Verified 10/20/17 18:26 Home Medications: Home Medication List Medication Instructions Recorded Confirmed Last Taken Type Hydrocodone/Acetaminophen 1 ea PO TID PRN PRN #15 tab 05/03/18 07/21/18 Unknown Rx [Hydrocodone-Acetamin 7.5-325] Lipase/Protease/Amylase [Creon] 6,000 units PO TID CC #90 cap 05/03/18 07/21/18 Unknown Rx Ondansetron [Zofran] 8 mg PO Q6HR #12 tab 07/21/18 Unknown Rx Pantoprazole [Protonix] 40 mg PO DIRECTED #90 tab 07/21/18 Unknown Rx Promethazine [Phenergan] 25 mg PO Q6H PRN PRN 07/21/18 07/21/18 07/15/18 History - History of Present Illness-ABD Nature of Presenting Problems: Patient is a 38 yobm who complains of epigastric pain and n/v since yesterday. Hx of pancreatitis, states s/s consistent with previous pancreatitis flares. Denies any other complaints. Pt is non-toxic in appearance. Review of Systems - Adult - REVIEW OF SYSTEMS - ADULT Constitutional: reports: no symptoms reported. denies: chills, fever Eyes: reports: no symptoms reported Ears, Nose, Mouth & Throat: reports: no symptoms reported Cardiovascular: reports: no symptoms reported Respiratory: reports: no symptoms reported Gastrointestinal: reports: see HPI Genitourinary: reports: no symptoms reported Musculoskeletal: reports: no symptoms reported Integumentary: reports: no symptoms reported Neurological: reports: no symptoms reported Psychiatric: reports: no symptoms reported Endocrine: reports: no symptoms reported Hematologic/Lymphatic: reports: no symptoms reported Allergic/Immunologic: reports: no symptoms reported All Other Systems: Reviewed and Negative Past History - Adult - PAST MEDICAL HISTORY-ADULT Review of Records: reports: Old Records Reviewed, Nursing Assessment Review, Medications Reviewed Major Childhood Illnesses: reports: denies history Cardiovascular: reports: denies history Respiratory: reports: denies history Gastrointestinal: reports: pancreatitis Obstetrical/Gynecological: reports: denies history Genitourinary: reports: denies history Musculoskeletal: reports: denies history Neurological: reports: denies history Psychiatric: reports: denies history Endocrine/Immune: reports: denies history Other Conditions: reports: denies history - PRIOR SURGERIES/PROCEDURES Surgical/Procedure History: reports: none - PRIOR HOSPITALIZATIONS Prior Hospitalizations: reports: for similar symptoms - IMMUNIZATION STATUS Childhood Immunizations: See Nurse Assessment Flu Vaccine: See Nurse Assessment - FAMILY HISTORY Family History: reviewed, not pertinent - SOCIAL HISTORY Smoking: non-smoker Alcohol Use Frequency: occasionally Physical Exam-General - PHYSICAL EXAM-ADULT Initial Vital Signs Reviewed: Yes - CONSTITUTIONAL General Appearance: alert, no apparent distress. negative: lethargic, slow to respond - EYES Eyes: PERRL/EOMI - HEAD, EARS, NOSE, MOUTH & THROAT HENMT: normocephalic/atraumatic, moist mucous membranes - NECK Neck: full range of motion, supple, normal inspection - RESPIRATORY Respiratory: chest non-tender, lungs clear, normal breath sounds, no pleuratic chest pain, no respiratory distress, no accessory muscle use - CARDIOVASCULAR Cardiovascular: regular rate, rhythm, no gallop, no murmur Progress - PLAN OF CARE/RESULTS Progress/Plan/Lab Results: Vital Signs - 8 hr 02/15/19 16:30 Temperature 98 F Pulse Rate 77 Respiratory Rate 18 O2 Sat by Pulse Oximetry 96 Orders Category Date Time Status AMYLASE [CHEM] Stat Lab 02/15/19 16:35 Uncollected CBC WITH DIFF [HEME] Stat Lab 02/15/19 16:35 Ordered COMPREHENSIVE METABOLIC PANEL [CHEM] Stat Lab 02/15/19 16:35 Uncollected LIPASE [CHEM] Stat Lab 02/15/19 16:35 Uncollected UA NIMS W/REFLEX CULT [URINALYSIS] Stat Lab 02/15/19 16:35 Uncollected Result Diagrams: 02/15/19 17:46 02/15/19 17:46 - REASSESSMENT Reassessment #1 Time Reassessed: 19:57 Status: other (Waiting on CT report to dispo.) Reassessment #2 Time Reassessed: 20:02 Status: other (Admitting HPS paged. Pt in agreement with admission plan. Pain and nausea controlled at this time.) - EKG 1 Time of EKG reading by physician:: 19:30 EKG Read and Signed by:: Naseem Ferro EKG Interpretation (*Must complete 3 of following elements*): Abnormal Rate: 70 Rhythm: NSR with sinus arrhythmia QRS: normal ST Wave: normal - CT/MRI 1 CT Study: Abdomen, Pelvis ([facility] - [address], [address], [place] [address] [facility] - [address] [place] [address] Department of Imaging Patient: AHMET KEN Date: 02/15/19MR#: [id number] : 1980ADM Status: REG [facility]#: [id number] Age/Sex: 38/MRoom/Bed: Loc: P.ED Ordering Physician: Maritza Cochran Family Physician: None,PCP Reason for Procedure: epigastric pain/tenderness, n/v Signed CT ABD/PELVIS W/IV CONT ONLY - 02/15/2019 INDICATION: epigastric pain/tenderness, n/v COMPARISON: 04/28/2018 FINDINGS: The lung bases are clear and the heart size is normal. There is significant indistinct fluid around the pancreas, similar to prior exams. There are stable dystrophic calcification of the pancreatic tail along with atrophy here. There are more dystrophic calcifications of the pancreatic head. There may be some stones in the main pancreatic duct, although there is no duct dilation. The liver and gallbladder are normal. No biliary dilation. Other abdominal organs are normal. No bowel obstruction or inflammation. Stable right inguinal hernia with some nonobstructed small bowel in the inguinal canal. There is trace pelvic free fluid. Urinary bladder, prostate, and rectum are normal. Bones are intact and well mineralized. IMPRESSION: Severe, recurrent pancreatitis. There are probably now some small stones in the pancreatic duct, but no duct dilation. Otherwise no complications. This exam was performed using automated exposure control, adjustment of mA or kV according to patient size, and/or use of iterative reconstruction technique Electronically signed by Scott Garcia 02/15/2019 7:54 PM 02/15/191953 Interpreting Physician: Scott Garcia MD Dictated Date/Time: 02/15/191936 cc: Maritza Cochran; None,PCP) - CONSULTS/PCP/HOSPITALIST Notification #1 *Consult/PCP/Hospitalist*: Dr. Lam Time Discussed: 20:04 Reason/Comments: admit- acute on chronic pancreatitis Consult Disposition: Admit Departure - Departure Date of Disposition Decision: 02/15/19 Time of Disposition Decision: 20:01 DIAGNOSIS: Pancreatitis Qualifiers: Chronicity: acute Pancreatitis type: unspecified pancreatitis type Acute pancreatitis complication: unspecified Qualified Code(s): K85.90 - Acute pancreatitis without necrosis or infection, unspecified Inguinal hernia Qualifiers: Obstruction and gangrene presence: without obstruction or gangrene Laterality: unspecified laterality Recurrence: not specified as recurrent Qualified Code(s): K40.90 - Unilateral inguinal hernia, without obstruction or gangrene, not specified as recurrent Disposition: ADMITTED INPATIENT 09 Certified Medical Emergency: Emergent Condition: Stable Referrals and Follow-Ups: None,PCP [Primary Care Provider] - - Critical Care Note This patient required my direct & personal management of CC.: No Attestation - Physician/ JOSHUA Attestation Patient care was provided by Advanced Practice Provider:: Yes Advanced Practice Provider:: Maritza Cochran Advanced Practice Provider documentation review:: The Mid-level provider documentation, treatment plan and medical decision making was reviewed by the physician who agrees with all treatment and medical decision making by the MLP. The physician spent face to face time with patient:: No Advanced Practice Provider documentation review:: Supervising physician onsite and consulted in the evaluation and care of this patient. The physician did not have a face to face encounter with the patient.
[2019-02-15] MEDS ORDERED: ZOFRAN IV ONE (17:29)
[2019-02-15] MEDS ORDERED: DILAUDID IV ONE (17:29)
[2019-02-15] MEDS ORDERED: NS 1,000 ML IV ONE (17:29)
[2019-02-15 18:05] LABS: BASO# 0.01 X1000 (0.0-0.2); BASO% 0.1 % (0.0-0.8); EOS# 0.23 X1000 (0.0-0.7); EOS% 2.7 % (0.0-10.0); HEMATOCRIT 43.3 % (42.0-52.0); HEMOGLOBIN 15.1 g/dL (14.0-18.0); IMM GRAN# 0.01 X1000 (0.0-0.04); IMM GRAN% 0.1 % (0.0-0.5); LYMPH# 1.31 X1000 (1.2-3.4); LYMPH% 15.2 % (20.5-51.1); MCH 33.9 PG (27-31); MCHC 34.9 g/dL (33-37); MCV 97.3 FL (81-99); MONO# 0.48 X1000 (0.11-0.59); MONO% 5.6 % (1.7-9.3); NEUT# 6.59 X1000 (1.4-6.5); NEUT% 76.3 % (42.2-75.2); PLT 184 X1000 (130-400); RBC 4.45 XMIL (4.7-6.1); RDW 11.8 % (11.5-14.5); WBC 8.63 X1000 (4.8-10.8)
[2019-02-15 18:25] LABS: ESTIMATED GFR > 60
[2019-02-15 18:41] LABS: AGAP 16; ALBUMIN 5.1 g/dL (3.5-5.0); ALKALINE PHOSPHATASE 75 U/L (32-122); AMYLASE 593 U/L (20-200); BUN 8 mg/dL (8-22); CALCIUM 9.6 mg/dL (8.8-10.2); CHLORIDE 101 mmol/L (98-107); COSMO 278; CREATININE 0.7 mg/dL (0.7-1.2); GLUCOSE 101 mg/dL (70-104); GOT 24 U/L (10-34); GPT 15 U/L (10-44); LIPASE 1003 U/L (13-60); POTASSIUM 3.7 mmol/L (3.5-5.1); SODIUM 140 mmol/L (136-145); TCO2 23 mmol/L (25-35); TOTAL PROTEIN 7.9 g/dL (6.3-8.3)
[2019-02-15 19:08] LABS: BILIRUBIN URINE NEGATIVE (NEGATIVE); BLOOD URINE NEGATIVE (NEGATIVE); COLOR YELLOW; GLUCOSE URINE NEGATIVE (NEGATIVE); KETONE URINE 10 mg/dL (NEGATIVE); LEUKOCYTES URINE SMALL (NEGATIVE); NITRITE URINE NEGATIVE (NEGATIVE); PROTEIN URINE TRACE mg/dL (NEGATIVE); SP GRAVITY URINE 1.016; TURBIDITY URINE CLEAR (CLEAR); UR EPITHELIAL CELLS <10 /HPF (<10); URINE BACTERIA NEGATIVE /HPF; URINE RBC <10 /HPF (<10); URINE SOURCE CLEAN CATCH; URINE WBC 20-40 /HPF (<10); UROBILINOGEN URINE NORMAL (NORMAL)
--- NOTE | 2019-02-15 19:57 | Diag Imaging Result Doc PS360 ---
CT ABD/PELVIS W/IV CONT ONLY - 02/15/2019 INDICATION: epigastric pain/tenderness, n/v COMPARISON: 04/28/2018 FINDINGS: The lung bases are clear and the heart size is normal. There is significant indistinct fluid around the pancreas, similar to prior exams. There are stable dystrophic calcification of the pancreatic tail along with atrophy here. There are more dystrophic calcifications of the pancreatic head. There may be some stones in the main pancreatic duct, although there is no duct dilation. The liver and gallbladder are normal. No biliary dilation. Other abdominal organs are normal. No bowel obstruction or inflammation. Stable right inguinal hernia with some nonobstructed small bowel in the inguinal canal. There is trace pelvic free fluid. Urinary bladder, prostate, and rectum are normal. Bones are intact and well mineralized. IMPRESSION: Severe, recurrent pancreatitis. There are probably now some small stones in the pancreatic duct, but no duct dilation. Otherwise no complications. This exam was performed using automated exposure control, adjustment of mA or kV according to patient size, and/or use of iterative reconstruction technique Electronically signed by Scott Garcia 02/15/2019 7:54 PM
[2019-02-15] MEDS ORDERED: D5 NS 1,000 ML IV ONE (20:07)
[2019-02-15] MEDS: ZOFRAN IV PRN (20:28)
[2019-02-15] MEDS: MORPHINE IV PRN ×2 (20:28→23:01)
--- NOTE | 2019-02-16 00:33 | EKG Report ---
Test Performed on : 02/15/2019 7:24:16 PM Test Reason : epigastric pain Blood Pressure : / mmHG Vent. Rate : 070 BPM Atrial Rate : 070 BPM P-R Int : 160 ms QRS Dur : 080 ms QT Int : 404 ms P-R-T Axes : 077 056 069 degrees QTc Int : 436 ms Normal sinus rhythm. with sinus arrhythmia. Normal ECG When compared with ECG of 28-APR-2018 10:24, Nonspecific T wave abnormality no longer evident in Inferior leads Nonspecific T wave abnormality no longer evident in Lateral leads Unconfirmed Result
[2019-02-16] MEDS: MORPHINE IV PRN ×3 (01:33→11:34)
[2019-02-16] MEDS: ZOFRAN IV PRN ×5 (03:19→21:30)
[2019-02-16] MEDS: NS 1,000 ML IV SCH ×2 (09:21→17:17)
--- NOTE | 2019-02-16 11:38 | Diag Imaging Result Doc PS360 ---
EXAM: MRI MRCP (ABD W/O CONTRAST) HISTORY: biliary duct stone TECHNIQUE: MRI abdomen without contrast. MRCP with MIP images. COMPARISON: CT from 02/15/2019 FINDINGS: Normal gallbladder. The common bile duct is not dilated. No definite filling defects within the common bile duct. Normal liver, spleen, adrenal glands, and kidneys. No pancreatic mass. IMPRESSION: No biliary ductal dilatation or definite stones within the common bile duct. Electronically signed by Pancho Palomino 02/16/2019 11:36 AM
[2019-02-16] MEDS: DILAUDID IV PRN ×3 (13:42→20:10)
[2019-02-16] MEDS ORDERED: TYLENOL PO PRN (14:33)
--- NOTE | 2019-02-16 14:41 | HISTORY AND PHYSICAL ---
PRIMARY CARE PHYSICIAN: None. CHIEF COMPLAINT: Epigastric abdominal pain with nausea and vomiting x2 that has been progressively worsening over the last couple of days. HISTORY OF PRESENTING ILLNESS: This is a 38-year-old male who presents to [facility] ER with complaints of epigastric abdominal pain and nausea and vomiting that began yesterday. He has a history of recurrent pancreatitis. He states that he has cut way back on his alcohol consumption, but did drink about a half a case this past , on . Workup in the emergency room showed an amylase of 593, lipase 1003. We did a CT of the abdomen and pelvis that showed severe recurrent pancreatitis, probably now some small stones in the pancreatic duct, but no duct dilation. Otherwise, no complication, so he was admitted for further evaluation and treatment. PAST MEDICAL HISTORY: GERD, recurrent pancreatitis. PAST SURGICAL HISTORY: None. FAMILY HISTORY: Reviewed and noncontributory. SOCIAL HISTORY: He lives with family. Smokes Black and Mild's daily, and has been a smoker for the past 15 years. Has a history of ETOH abuse, but states he has cut way back, but last drank about a half a case of beer on during while he was with family, and denies any illicit drug use. ALLERGIES: He has no known drug allergies. HOME MEDICATIONS: He does not take any medications on a routine basis. IMAGING AND LABORATORY DATA: Laboratory data showed a white blood cell count of 8.63, hemoglobin 15.1, hematocrit 43.3, platelets 184,000. Sodium 140, potassium 3.7, chloride 101, CO2 of 23, BUN of 8, creatinine 0.7, glucose 101. Amylase 593, lipase 1003. Urinalysis was negative. CT of the abdomen and pelvis showed severe recurrent pancreatitis. There are probably some small stones in the pancreatic duct, but no duct dilation. Otherwise, no complications. REVIEW OF SYSTEMS: He denied any fever, chills, blurred vision, dizziness, chest pain, coughing, shortness of breath. He was positive for epigastric abdominal pain, nausea, vomiting. Denied any constipation, diarrhea, burning or hurting with urination. PHYSICAL EXAMINATION: VITAL SIGNS: On arrival, he had a temperature of 98 degrees, pulse 77, respirations 18, blood pressure 126/88, saturating 96% on room air. GENERAL: This is a 38-year-old male, sitting up in the bed, and answers questions appropriately. HEENT: Normocephalic, atraumatic. Pupils are equal, round, and reactive to light. Normal ENT inspection. Oropharynx and nares are clear. NECK: Normal inspection. Normal range of motion. LUNGS: Clear to auscultation bilaterally with equal lung expansion and chest wall movement. HEART: Regular rate and rhythm. No murmurs, rubs, or gallops. ABDOMEN: Soft. There was some tenderness to palpation in the epigastric area. Bowel sounds are present x4 quadrants. MUSCULOSKELETAL: He had 5/5 strength x4 extremities. NEUROLOGICAL: The cranial nerves II through XII appear grossly intact. ASSESSMENT: 1. Severe recurrent pancreatitis. 2. Epigastric abdominal pain secondary to #1. 3. Nausea and vomiting. 4. Tobacco abuse. 5. Ethanol abuse. PLAN: He is admitted to the medical unit, held n.p.o., receiving normal saline at 125 mL an hour, morphine 2 mg IV every 2 hours p.r.n., Zofran 4 mg IV every 6 hours p.r.n. He is n.p.o. Will recheck a CBC, BMP, amylase, lipase in the a.m. Urine culture is pending. I discussed in detail with the patient, the need for complete ETOH cessation. The patient verbalized understanding. We also discussed smoking cessation as well, and he verbalized understanding. Further orders after seen by attending. Dictated by ELSY Lea for Shaheen Haas MD cc: ELSY Lea MD
--- NOTE | 2019-02-16 15:44 | PROGRESS NOTE ---
DATE: 02/16/2019 SUBJECTIVE: Patient has no major complaints. OBJECTIVE: Vitals: Blood pressure is 130/80, heart rate 62, respiratory rate 16, temperature 97.8 degrees. Cardiovascular: Regular rate and rhythm. Pulmonary: Bilateral breath sounds, clear to auscultation. GI: Soft, nontender, nondistended. Bowel sounds. LABORATORY DATA: I do not have any new data today. ASSESSMENT: Acute pancreatitis, and there are questionably some small stones and stones in the pancreatic duct but no duct dilation. His MRCP which was done as followup did not show any stones in the common bile duct. There is no pancreatic stone/ TREATMENT: We will continue IV fluids, pain control, and follow closely and monitor closely. This is a [id number] encounter note with Mikayla Neil. cc: Shaheen Haas MD
[2019-02-16] MEDS: LR 1,000 ML IV SCH (17:17)
[2019-02-17] MEDS: LR 1,000 ML IV SCH ×3 (01:50→18:43)
[2019-02-17] MEDS: NS 1,000 ML IV SCH ×2 (01:50→09:32)
[2019-02-17] MEDS: ZOFRAN IV PRN ×4 (03:01→18:26)
[2019-02-17] MEDS: DILAUDID IV PRN ×4 (03:01→18:26)
[2019-02-17 06:07] LABS: BASO# 0.01 X1000 (0.0-0.2); BASO% 0.1 % (0.0-0.8); EOS# 0.26 X1000 (0.0-0.7); EOS% 3.5 % (0.0-10.0); HEMATOCRIT 40.2 % (42.0-52.0); HEMOGLOBIN 13.8 g/dL (14.0-18.0); IMM GRAN# 0.01 X1000 (0.0-0.04); IMM GRAN% 0.1 % (0.0-0.5); LYMPH# 1.19 X1000 (1.2-3.4); LYMPH% 16.1 % (20.5-51.1); MCH 33.9 PG (27-31); MCHC 34.3 g/dL (33-37); MCV 98.8 FL (81-99); MONO# 0.53 X1000 (0.11-0.59); MONO% 7.2 % (1.7-9.3); MPV 10.1 FL (7.4-10.4); NEUT# 5.38 X1000 (1.4-6.5); PLT 174 X1000 (130-400); RBC 4.07 XMIL (4.7-6.1); RDW 11.6 % (11.5-14.5); WBC 7.38 X1000 (4.8-10.8)
[2019-02-17 06:21] LABS: AGAP 15; AMYLASE 257 U/L (20-200); BUN 4 mg/dL (8-22); CALCIUM 8.5 mg/dL (8.8-10.2); CHLORIDE 103 mmol/L (98-107); COSMO 275; CREATININE 0.6 mg/dL (0.7-1.2); ESTIMATED GFR > 60; GLUCOSE 75 mg/dL (70-104); LIPASE 185 U/L (13-60); POTASSIUM 3.8 mmol/L (3.5-5.1); SODIUM 140 mmol/L (136-145); TCO2 22 mmol/L (25-35)
[2019-02-17 06:29] LABS: ALBUMIN 4.4 g/dL (3.5-5.0); ALKALINE PHOSPHATASE 64 U/L (32-122); DIRECT BILIRUBIN < 0.20 mg/dL (0.00-0.20); GOT 17 U/L (10-34); GPT 11 U/L (10-44); TOTAL PROTEIN 6.7 g/dL (6.3-8.3)
[2019-02-17 16:17] LABS: AGAP 16; ALBUMIN 3.7 g/dL (3.5-5.0); ALKALINE PHOSPHATASE 56 U/L (32-122); BUN 4 mg/dL (8-22); CALCIUM 8.1 mg/dL (8.8-10.2); CHLORIDE 102 mmol/L (98-107); COSMO 265; CREATININE 0.5 mg/dL (0.7-1.2); ESTIMATED GFR > 60; GLUCOSE 69 mg/dL (70-104); GOT 14 U/L (10-34); GPT 9 U/L (10-44); POTASSIUM 3.8 mmol/L (3.5-5.1); SODIUM 135 mmol/L (136-145); TCO2 17 mmol/L (25-35); TOTAL PROTEIN 6.3 g/dL (6.3-8.3)
[2019-02-18] MEDS: LR 1,000 ML IV SCH ×3 (05:40→19:29)
[2019-02-18] MEDS: ZOFRAN IV PRN ×3 (06:53→23:04)
[2019-02-18] MEDS: DILAUDID IV PRN ×2 (06:53)
[2019-02-18 07:06] LABS: AMYLASE 130 U/L (20-200); BASO# 0.01 X1000 (0.0-0.2); BASO% 0.1 % (0.0-0.8); EOS# 0.32 X1000 (0.0-0.7); EOS% 4.6 % (0.0-10.0); HEMATOCRIT 35.2 % (42.0-52.0); HEMOGLOBIN 12.3 g/dL (14.0-18.0); IMM GRAN# 0.01 X1000 (0.0-0.04); IMM GRAN% 0.1 % (0.0-0.5); LIPASE 71 U/L (13-60); LYMPH# 1.36 X1000 (1.2-3.4); LYMPH% 19.4 % (20.5-51.1); MCH 34.1 PG (27-31); MCHC 34.9 g/dL (33-37); MCV 97.5 FL (81-99); MONO# 0.65 X1000 (0.11-0.59); MONO% 9.3 % (1.7-9.3); MPV 10.5 FL (7.4-10.4); NEUT# 4.67 X1000 (1.4-6.5); NEUT% 66.5 % (42.2-75.2); PLT 164 X1000 (130-400); RBC 3.61 XMIL (4.7-6.1); RDW 11.2 % (11.5-14.5); WBC 7.02 X1000 (4.8-10.8)
[2019-02-18] MEDS ORDERED: DILAUDID IV PRN ×2 (12:12→13:07)
[2019-02-18] MEDS: NORCO-10 PO PRN ×3 (14:10→23:04)
[2019-02-19] MEDS: NORCO-10 PO PRN ×2 (04:17→09:03)
[2019-02-19] MEDS: LR 1,000 ML IV SCH (04:17)
--- NOTE | 2019-02-19 05:36 | PROGRESS NOTE ---
DATE: 02/18/2019 SUBJECTIVE: Patient notes that he is feeling a lot better. Still having some abdominal pain. Has not really tried to eat anything. Still having some occasional nausea. Still requiring pain medication. PHYSICAL EXAMINATION: Vital Signs: Temperature 97.8 degrees, pulse 78, respiratory rate 18, BP 128/78. General: Patient is in no current respiratory distress. HEENT: Normocephalic. Neck: Supple. Cardiovascular: Regular rate. Chest: Clear. Abdomen: Soft. Extremities: Moves all extremities. Neurologic: No changes. ASSESSMENT: 1. Acute pancreatitis. 2. Chronic alcohol abuse. 3. Pancreatic ductal stones. PLAN: We are going to attempt to stop Dilaudid, try p.o. [place], try to advance his diet. If he tolerates, hopefully he can be home tomorrow. Discussed with patient the importance of no alcohol including mouthwash, cough syrup, etc. cc: Kp Lam MD
[2019-02-19 05:59] VITALS: BP 109/68
--- NOTE | 2019-02-19 22:48 | PROGRESS NOTE ---
DATE: 02/19/2019 SUBJECTIVE: Patient notes that his abdominal pain is much improved. His nausea is improved. States he was able to tolerate a liquid diet. He is excited about starting solids. PHYSICAL EXAMINATION: Vital signs: Temperature 97.3 degrees, pulse 60, respiratory rate 18, BP 109/68. General: Patient is in no current respiratory distress. He is pleasant. Neck: Supple. Cardiovascular: Regular rate. Chest: Clear. Abdomen: Soft, nondistended, mildly tender in the epigastric region. Extremities: Moves all extremities. Neurologic: No focal changes. ASSESSMENT: 1. Pancreatitis. 2. History of alcohol use. PLAN: We have stopped his Dilaudid. We will change him over to p.o. pain medication. We are going to advance his diet if he tolerates a soft diet. We are going to discharge him home today. cc: Kp Lam MD
--- NOTE | 2019-02-26 00:01 | DISCHARGE SUMMARY ---
ADMISSION DATE: 02/15/2019 DISCHARGE DATE: 02/19/2019 DISCHARGE DIAGNOSES: 1. Pancreatitis. 2. History of alcohol abuse. CONSULTATIONS: None. PROCEDURES: None. BRIEF HOSPITAL COURSE: The patient is a 38-year-old male who presented to the hospital secondary to abdominal pain, nausea, vomiting. He subsequently was diagnosed with pancreatitis, admitted to the hospital, kept NPO, pain control, IV fluids. Over a few days, his symptoms resolved. He was able to advance his diet. On discharge, he is awake, alert, and in no distress. DISPOSITION: The patient will be discharged home. Discussed with him that he needs to refrain from all alcohol and alcohol-containing products. He needs to continue to eat a GI soft diet for the next few days and advance as tolerated. No changes were made on medications otherwise. Greater than 30 minutes was spent in total care. cc: Kp Lam MD
== END 2019-02-19 12:09 | disposition home or self-care (01) | DRG 440 ==
LOC: P.ED 16:23 → P.MEDSURG 20:49 → SUATTDRO 20:49
PROVIDERS: ATTEND Family Medicine

== ENCOUNTER 2019-03-24 10:48 | Inpatient (IN) ==
[2019-03-24] MEDS ORDERED: NS 1,000 ML IV ONE ×2 (11:06→13:13)
[2019-03-24] MEDS ORDERED: ZOFRAN IV ONE (11:07)
[2019-03-24] MEDS ORDERED: MORPHINE IV ONE (11:07)
[2019-03-24 11:25] LABS: BASO# 0.02 X1000 (0.0-0.2); BASO% 0.2 % (0.0-0.8); EOS# 0.48 X1000 (0.0-0.7); EOS% 5.9 % (0.0-10.0); HEMATOCRIT 40.3 % (42.0-52.0); HEMOGLOBIN 13.8 g/dL (14.0-18.0); IMM GRAN# 0.01 X1000 (0.0-0.04); IMM GRAN% 0.1 % (0.0-0.5); LYMPH# 1.42 X1000 (1.2-3.4); LYMPH% 17.6 % (20.5-51.1); MCH 33.8 PG (27-31); MCHC 34.2 g/dL (33-37); MCV 98.8 FL (81-99); MONO# 0.56 X1000 (0.11-0.59); MONO% 6.9 % (1.7-9.3); MPV 9.5 FL (7.4-10.4); NEUT# 5.58 X1000 (1.4-6.5); NEUT% 69.3 % (42.2-75.2); PLT 196 X1000 (130-400); RBC 4.08 XMIL (4.7-6.1); RDW 12.4 % (11.5-14.5); WBC 8.07 X1000 (4.8-10.8)
[2019-03-24 11:59] LABS: AGAP 13; ALBUMIN 4.9 g/dL (3.5-5.0); ALKALINE PHOSPHATASE 70 U/L (32-122); BUN 9 mg/dL (8-22); CALCIUM 9.8 mg/dL (8.8-10.2); CHLORIDE 105 mmol/L (98-107); COSMO 287; CREATININE 0.8 mg/dL (0.7-1.2); ESTIMATED GFR > 60; GLUCOSE 122 mg/dL (70-104); GOT 21 U/L (10-34); GPT 14 U/L (10-44); LIPASE 504 U/L (13-60); POTASSIUM 4.6 mmol/L (3.5-5.1); SODIUM 144 mmol/L (136-145); TCO2 26 mmol/L (25-35); TOTAL PROTEIN 8.2 g/dL (6.3-8.3)
[2019-03-24] MEDS ORDERED: DILAUDID IV ONE (12:01)
[2019-03-24 12:05] LABS: URINE SOURCE CLEAN CATCH
[2019-03-24 12:09] LABS: BILIRUBIN URINE NEGATIVE (NEGATIVE); BLOOD URINE NEGATIVE (NEGATIVE); COLOR YELLOW; GLUCOSE URINE NEGATIVE (NEGATIVE); KETONE URINE TRACE mg/dL (NEGATIVE); LEUKOCYTES URINE MODERATE (NEGATIVE); NITRITE URINE NEGATIVE (NEGATIVE); PH URINE 6.5; PROTEIN URINE 30 mg/dL (NEGATIVE); SP GRAVITY URINE 1.029; TURBIDITY URINE CLEAR (CLEAR); UROBILINOGEN URINE NORMAL (NORMAL)
--- NOTE | 2019-03-24 12:33 | PROVIDER DOCUMENTATION ---
This chart was entered by Gogo Mueller Scribdenny, acting as scribe for Kymberly English MD. HPI-Abdominal Pain/GI Problem - General Chief Complaint: Abdominal Pain Stated Complaint: ABD PAIN Time Seen by Provider: 03/24/19 11:04 Source: patient Allergies/Adverse Reactions: Patient Allergies Allergy/AdvReac Type Severity Reaction Status Date / Time No Known Allergies Allergy Verified 10/20/17 18:26 Home Medications: Home Medication List Medication Instructions Recorded Confirmed Last Taken Type Hydrocodone/APAP 10 mg/325 mg 1 ea PO Q4H PRN PRN #15 tab 02/19/19 Unknown Rx [[place]-10] - History of Present Illness-ABD Nature of Presenting Problems: Pt is a 38 yobm with c/o of abdominal pain. Pt has a hx of pancreatitis. Pt states that he has vomited 2x this morning and had diarrhea earlier in the week. Pt is alert and nontoxic in appearance. Abdominal Pain Onset Location: reports: epigastric Pain Radiation: reports: no radiation Quality of Pain: reports: cramping Severity in ED: reports: mild Onset/Duration: reports: abrupt, 1-3 hours ago Timing: reports: still present, constant Activities at Onset: reports: light activity Associated Symptoms: reports: diarrhea (earlier in the week), vomiting (2x this am) Last BM: unsure Dark Stools Present?: reports: none noticed # of Diarrhea Episodes: 1 (earlier in week) # of Vomiting Episodes: 2 (this am) Similar Symptoms Previously?: Yes (hx of pancreatitis) Review of Systems - Adult - REVIEW OF SYSTEMS - ADULT Constitutional: reports: no symptoms reported Eyes: reports: no symptoms reported Ears, Nose, Mouth & Throat: reports: no symptoms reported Cardiovascular: denies: chest pain, syncope Respiratory: reports: see HPI. denies: shortness of breath Gastrointestinal: reports: abdominal pain, vomiting Genitourinary: reports: no symptoms reported Musculoskeletal: reports: no symptoms reported Integumentary: reports: no symptoms reported Neurological: denies: dizziness/vertigo, syncope Psychiatric: reports: no symptoms reported Endocrine: reports: no symptoms reported Hematologic/Lymphatic: reports: no symptoms reported Allergic/Immunologic: reports: no symptoms reported All Other Systems: Reviewed and Negative Past History - Adult - PAST MEDICAL HISTORY-ADULT Review of Records: reports: Old Records Reviewed, Nursing Assessment Review, Medications Reviewed, Social history reviewed & non-contributory. Major Childhood Illnesses: reports: denies history Cardiovascular: reports: denies history Respiratory: reports: denies history Gastrointestinal: reports: GERD, pancreatitis Genitourinary: reports: denies history Musculoskeletal: reports: denies history Neurological: reports: denies history Psychiatric: reports: denies history Endocrine/Immune: reports: denies history Other Conditions: reports: denies history - PRIOR SURGERIES/PROCEDURES Surgical/Procedure History: reports: none - PRIOR HOSPITALIZATIONS Prior Hospitalizations: reports: for similar symptoms - IMMUNIZATION STATUS Childhood Immunizations: See Nurse Assessment Flu Vaccine: See Nurse Assessment - FAMILY HISTORY Family History: reviewed, not pertinent - SOCIAL HISTORY Smoking: cigarettes, greater than 1 pack/day Provider spent 3-5 mins advising pt. on dangers of tobacco.: Discussed manners to quit use, and f/u contacts for add'l counseling. Substance Use: alcohol Alcohol Use Frequency: occasionally Living Situation: alone Physical Exam-General - PHYSICAL EXAM-ADULT Initial Vital Signs Reviewed: Yes (Temp 97.4) - CONSTITUTIONAL General Appearance: alert, thin - EYES Eyes: PERRL/EOMI - HEAD, EARS, NOSE, MOUTH & THROAT HENMT: moist mucous membranes - NECK Neck: non-tender, full range of motion - RESPIRATORY Respiratory: chest non-tender, lungs clear - CARDIOVASCULAR Cardiovascular: normal peripheral pulses, regular rate, rhythm - GASTROINTESTINAL (ABDOMEN) Abdominal Exam: soft, tenderness (epigastric) - MUSCULOSKELETAL Back Exam: no CVA tenderness, no vertebral tenderness Extremity: normal range of motion, non-tender, normal gait, no pedal edema - SKIN Integumentary: normal color, normal turgor, warm/dry - PSYCHIATRIC Psych/Mental Status: normal mood/affect, normal thought content, normal thought process, oriented x 3 Progress - PLAN OF CARE/RESULTS Progress/Plan/Lab Results: Vital Signs - 8 hr 03/24/19 10:52 Temperature 97.4 F L Pulse Rate 68 Respiratory Rate 18 Blood Pressure 123/65 O2 Sat by Pulse Oximetry 100 Orders Category Date Time Status Saline Loc NOW Care 03/24/19 11:06 Active AMYLASE [CHEM] Stat Lab 03/24/19 11:00 Ordered CBC WITH DIFF [HEME] Stat Lab 03/24/19 11:00 Ordered COMPREHENSIVE METABOLIC PANEL [CHEM] Stat Lab 03/24/19 11:00 Uncollected LIPASE [CHEM] Stat Lab 03/24/19 11:00 Uncollected UA [URINALYSIS W/POSS RFLX CULT] [URINALYSIS] Stat Lab 03/24/19 11:00 Uncollected 0.9% Sodium Chloride Inj [Ns] 1,000 ml Med 03/24/19 11:06 Active IV 999 mls/hr Morphine Med 03/24/19 11:07 Discontinued 4 mg IV NOW ONE Ondansetron [Zofran] Med 03/24/19 11:07 Discontinued 4 mg IV NOW ONE Result Diagrams: 03/24/19 11:15 03/24/19 11:15 - REASSESSMENT Reassessment #1 Time Reassessed: 12:29 Status: unchanged Reassessment Comment: at bedside discussing hospital admitance. - CONSULTS/PCP/HOSPITALIST Notification #1 *Consult/PCP/Hospitalist*: Dr Lam Time Discussed: 12:30 Consult Disposition: Admit Departure - Departure Date of Disposition Decision: 03/24/19 Time of Disposition Decision: 12:31 DIAGNOSIS: Pancreatitis Qualifiers: Chronicity: chronic Pancreatitis type: unspecified pancreatitis type Qualified Code(s): K86.1 - Other chronic pancreatitis Disposition: ADMITTED INPATIENT 09 Certified Medical Emergency: Emergent Condition: Good Referrals and Follow-Ups: None,PCP [Primary Care Provider] - - Critical Care Note This patient required my direct & personal management of CC.: No Attestation - Physician/ JOSHUA Attestation Patient care was provided by Advanced Practice Provider:: No The physician spent face to face time with patient:: Yes Advanced Practice Provider documentation review:: Supervising physician onsite and consulted in the evaluation and care of this patient. The physician did have a face to face encounter with the patient. This chart was documented by the indicated scribe, (Gogo Mueller Scribe) and accurately reflects the services I performed and decisions made by me, Kymberly English MD, as attested by the provider's signature.
[2019-03-24 12:34] LABS: URINE CRYSTALS CA OXALATE PRESENT
[2019-03-24 12:37] LABS: URINE SMALL ROUND CELLS NONE SEEN
[2019-03-24 12:38] LABS: UR EPITHELIAL CELLS <10 /HPF (<10); URINE BACTERIA NEGATIVE /HPF; URINE RBC <10 /HPF (<10); URINE WBC <10 /HPF (<10)
[2019-03-24 12:39] LABS: URINE CASTS NONE SEEN; URINE YEAST NONE SEEN
[2019-03-24] MEDS ORDERED: ZOFRAN IV PRN (12:52)
[2019-03-24] MEDS ORDERED: MORPHINE IV PRN (12:55)
[2019-03-24] MEDS ORDERED: SODIUM CHLORIDE 0.9% INJ SCH (13:00)
[2019-03-24] MEDS: PROTONIX IV SCH (14:12)
[2019-03-24] MEDS: NS 1,000 ML IV SCH (15:26)
[2019-03-24] MEDS: DILAUDID IV PRN ×2 (15:27→19:49)
--- NOTE | 2019-03-24 18:40 | HISTORY AND PHYSICAL ---
CHIEF COMPLAINT: Epigastric pain with nausea and vomiting. HISTORY OF PRESENT ILLNESS: This is a 38-year-old gentleman with a history of recurrent pancreatitis and alcohol use. He presents to the [facility] ER complaining of epigastric pain as well as nausea and vomiting that has been present for about 18 hours. He states he has a history of pancreatitis and this feels like another episode. Mr. Mcelroy has a history of alcohol use and abuse. He states he was hospitalized February 15 through February 19 with pancreatitis. He was told that if he continued to drink this could be chronic. He states he has not had a drink since he left the hospital. PAST MEDICAL HISTORY: Pancreatitis, gastroesophageal reflux disease. PAST SURGICAL HISTORY: He denies. SOCIAL HISTORY: He lives with family members. He smokes Black and Milds daily. He smoked for about 15 to 16 years. He has a history of alcohol abuse. States he has not drank since his February 15 admission. He denies any illicit drug use. ALLERGIES: No known drug allergies. HOME MEDICATIONS: None. REVIEW OF SYSTEMS: Discussed with patient with pertinent positives stated in the HPI. He denied any syncope, dizziness, chest pain, palpitations, any shortness of breath, cough, fever, chills, any night sweats, recent weight loss or weight gain, any diarrhea, constipation, any black or bloody vomitus or stools, any hematuria, frequency or urgency. PHYSICAL EXAMINATION: GENERAL: This is a 38-year-old gentleman who is sitting up in the stretcher in the emergency room in no distress. VITAL SIGNS: Blood pressure is 123/65 with a heart rate of 68, respirations are 18, temperature is 97.4 degrees room air saturations are 100%. EYES: Pupils are equal, round, react to light. EOMs are intact. Sclerae anicteric. HEENT: Head is normocephalic, atraumatic. Mucous membranes are dry and sticky. NECK: Supple with trachea midline. CARDIOVASCULAR: Regular rate and rhythm. S1 and S2 appreciated. EXTREMITIES: He has no lower extremity edema. Calves are nontender bilateral with peripheral pulses palpable x4 extremities. PULMONARY: Breath sounds are clear. No increased work of breathing noted. Chest rises and falls symmetric with respiration. Chest wall is nontender to palpation. GASTROINTESTINAL: Abdomen is soft. It is tender to palpation in the epigastric area. He is nondistended with bowel sounds in all 4 quadrants. GENITOURINARY: No CVA or suprapubic tenderness. NEUROLOGIC: He is alert and oriented x3. SKIN: Warm and dry. LABS: WBC is 8 with hemoglobin 13.8, hematocrit 40.3 and platelets of 196,000. Sodium is 144, potassium 4.6, BUN 9, creatinine 0.8, with a glucose of 122. Amylase is 249, lipase is 504. Urinalysis is less than 10 microscopic white blood cells, red blood cells and epithelial cells with no bacteria. ASSESSMENT AND PLAN: 1. Acute pancreatitis. 2. Epigastric pain secondary to #1. 3. Nausea and vomiting. 4. Tobacco abuse. 5. Ethanol abuse. PLAN: The patient will be admitted to the medical unit. He will be n.p.o. We will give a liter bolus now and then continue fluids at 125 an hour, giving morphine for pain and Zofran for nausea. Give Protonix IV. We will check a CBC, BMP, amylase and lipase in the morning. We will check triglycerides. I did discuss with the patient the perils of continuing to drink alcohol, continuing but not limited to chronic pancreatitis or even . He does voice understanding and he does state that he stopped drinking after his 02/15 through 02/19 admission. I discussed with the patient smoking cessation. He verbalized understanding. He will be given written materials. The patient was evaluated and plan was discussed with Dr. Lam. Dictated by ELSY Woodruff for Kp Lam MD cc: ELSY Woodruff MD
--- NOTE | 2019-03-24 22:17 | HISTORY AND PHYSICAL ---
ADDENDUM: Patient seen and examined by myself. Full note dictated and discussed with nurse practitioner. Patient presented to the hospital with increased epigastric abdominal pain. Notes that he has had pancreatitis many times in the past and states the symptoms feel like that. Therefore, he came to the hospital. Unfortunately, he does have pancreatitis. He is having epigastric tenderness. We are going to admit him to the hospital, keep him NPO, pain medication, IV fluids and will follow. cc: Kp Lam MD
[2019-03-25] MEDS: NS 1,000 ML IV SCH ×2 (00:05→06:23)
[2019-03-25] MEDS: DILAUDID IV PRN ×5 (00:11→23:08)
[2019-03-25 06:02] LABS: BASO# 0.02 X1000 (0.0-0.2); BASO% 0.2 % (0.0-0.8); EOS# 0.48 X1000 (0.0-0.7); EOS% 5.3 % (0.0-10.0); HEMATOCRIT 38.4 % (42.0-52.0); IMM GRAN# 0.02 X1000 (0.0-0.04); IMM GRAN% 0.2 % (0.0-0.5); LYMPH# 1.55 X1000 (1.2-3.4); LYMPH% 17.1 % (20.5-51.1); MCH 33.2 PG (27-31); MCHC 33.9 g/dL (33-37); MCV 98.2 FL (81-99); MONO# 0.57 X1000 (0.11-0.59); MONO% 6.3 % (1.7-9.3); MPV 9.5 FL (7.4-10.4); NEUT# 6.45 X1000 (1.4-6.5); NEUT% 70.9 % (42.2-75.2); PLT 192 X1000 (130-400); RBC 3.91 XMIL (4.7-6.1); RDW 11.8 % (11.5-14.5); WBC 9.09 X1000 (4.8-10.8)
[2019-03-25 06:18] LABS: AGAP 11; ALKALINE PHOSPHATASE 60 U/L (32-122); BUN 5 mg/dL (8-22); CALCIUM 8.6 mg/dL (8.8-10.2); CHLORIDE 106 mmol/L (98-107); COSMO 276; CREATININE 0.5 mg/dL (0.7-1.2); ESTIMATED GFR > 60; GLUCOSE 90 mg/dL (70-104); GOT 15 U/L (10-34); GPT 9 U/L (10-44); SODIUM 140 mmol/L (136-145); TCO2 23 mmol/L (25-35); TOTAL PROTEIN 6.9 g/dL (6.3-8.3)
[2019-03-25 06:35] LABS: AMYLASE 156 U/L (20-200); LIPASE 142 U/L (13-60)
[2019-03-25] MEDS: PROTONIX IV SCH (13:20)
--- NOTE | 2019-03-25 22:05 | PROGRESS NOTE ---
DATE: 03/25/2019 SUBJECTIVE: Patient notes that he is starting to feel a little bit better. He states he is excited that he may be able to eat. Notes that his abdominal pain is improved. He is still however on a soft diet. OBJECTIVE: Vital signs: Temperature 98 degrees, pulse 66, respiratory rate 18, BP 127/86. General: Patient is awake. He is pleasant. He is in no distress. HEENT: Normocephalic. Neck: Supple. Cardiovascular: Regular rate. Chest: Clear. Abdomen: Soft. Minimal tenderness. Extremities: Moves all extremities. Neurologic: No changes. ASSESSMENT: 1. Chronic pancreatitis with acute exacerbation. 2. Epigastric pain. 3. Nausea and vomiting. 4. Chronic tobacco abuse. 5. History of chronic alcohol abuse, although patient denies any recent alcohol. PLAN: Given that his amylase and lipase both have improved, we are going to advance his diet to GI soft. If he tolerates, hopefully can discharge home tomorrow. cc: Kp Lam MD
[2019-03-26 04:49] VITALS: BP 109/69
[2019-03-26] MEDS ORDERED: NORCO-10 PO PRN (06:57)
[2019-03-26] MEDS: PROTONIX IV SCH (15:50)
--- NOTE | 2019-03-27 04:55 | DISCHARGE SUMMARY ---
ADMISSION DATE: 03/24/2019 DISCHARGE DATE: 03/26/2019 DISCHARGE DIAGNOSIS: 1. Recurrent pancreatitis with acute exacerbation. 2. Nausea and vomiting, resolved. 3. History of chronic alcoholism although he denies any recent usage. 4. Chronic tobacco abuse. CONSULTATIONS: None. PROCEDURES: None. BRIEF HOSPITAL COURSE: The patient is a 38-year-old male who presented to the hospital secondary to nausea, vomiting, abdominal pain. He was diagnosed with pancreatitis. Place in the hospital. NPO until his symptoms improved and his diet was advanced. On discharge he is awake, alert. He is still having some minimal epigastric pain, but he tolerated a GI soft diet. DISPOSITION: Patient will be discharged home. Discussed with him he needs to continue to avoid all alcohol and alcohol-containing products. Continue the small frequent meals as opposed to large fatty meals. Also discussed the importance of stopping smoking. cc: Kp Lam MD
--- NOTE | 2019-03-27 19:31 | DISCHARGE SUMMARY ---
ADMISSION DATE: 03/24/2019 DISCHARGE DATE: 03/26/2019 DIAGNOSES: 1. Chronic pancreatitis with acute exacerbation. Resolved. 2. Epigastric pain. Resolved. 3. Nausea and vomiting. Resolved. 4. History of tobacco abuse. 5. Ethanol abuse, although the patient denies any recent alcohol. HOSPITAL COURSE: Mr. Mcelroy presented to the emergency room with epigastric pain, nausea, and vomiting. He was found to have an amylase of 249, lipase of 504. He was admitted to the hospital, kept NPO, given IV hydration, labs, as well as pain and nausea medication. Amylase has decreased to 156 with lipase to 142 on the . Diet has been advanced and he tolerated a GI soft diet today with no nausea, vomiting, or abdominal pain. Thankfully, he is ready for discharge. DISCHARGE VITAL SIGNS: Blood pressure is 109/69, with a heart rate of 85, respirations 16, temperature is 97.8 degrees, with room air saturations 100%. DISCHARGE PHYSICAL EXAMINATION: Cardiovascular: Regular rate and rhythm. S1 and S2 appreciated. Pulmonary: Breath sounds are clear. No increased work of breathing noted. Gastrointestinal: Abdomen is soft. He has a little epigastric tenderness to palpation with bowel sounds in all 4 quadrants. Neurologic: Alert and oriented x3. DISCHARGE MEDICATIONS: [place] 10/325 one p.o. q.6 hours p.r.n. Prescription was given for #15 with no refills. FOLLOWUP: He is to call his primary care physician Friday to schedule an appointment to follow up in the next 2 to 3 weeks, sooner if needed. He has been instructed to return to the emergency room or call to be seen sooner for any syncope, dizziness, chest pain, palpitations, temperature greater than 101, recurring nausea, vomiting, diarrhea, constipation, any black or bloody vomitus or stools, any hematuria, dysuria, frequency, urgency, or for any questions or concerns that he may have. DISPOSITION: He is being discharged home in stable condition with family members. TIME: This is a greater than 30 minute discharge. Dictated by ELSY Woodruff for Kp Lam MD cc: ELSY Woodruff MD
== END 2019-03-26 15:56 | disposition home or self-care (01) | DRG 440 ==
LOC: P.ED 10:48 → P.EDIPHOLD 13:36 → P.MEDSURG 22:02
PROVIDERS: ATTEND Family Medicine

== ENCOUNTER 2019-06-28 09:12 | Inpatient (IN) ==
[2019-06-28] MEDS ORDERED: NS 1,000 ML IV ONE (09:23)
[2019-06-28] MEDS ORDERED: PROTONIX IV ONE (09:24)
[2019-06-28] MEDS ORDERED: SODIUM CHLORIDE 0.9% INJ ONE ×2 (09:24→14:00)
[2019-06-28] MEDS ORDERED: MORPHINE IV ONE (10:01)
[2019-06-28] MEDS ORDERED: ZOFRAN IV ONE (10:02)
--- NOTE | 2019-06-28 10:08 | Diag Imaging Result Doc PS360 ---
EXAM: CT ABDOMEN/PELVIS W/O CONTRAST - 06/28/2019 HISTORY: abdominal pain TECHNIQUE: CT abdomen/pelvis without contrast. No contrast administered per request of the referring provider. COMPARISON: 02/15/2019 CT abdomen/pelvis with IV contrast FINDINGS: There is some limitation of detail without administered contrast. The visualized lung bases are clear. There are no acute changes identified in the liver, spleen, or adrenal glands. There are no calcified gallstones identified. There are multiple pancreatic calcifications similar to prior and compatible with chronic pancreatitis. There is mild peripancreatic edema which may relate to recurrent/acute pancreatitis. There is no pancreatic necrosis or pseudocyst apparent. There is no renal stone or hydronephrosis identified. There are no substantially enlarged lymph nodes identified. There is no evidence of bowel obstruction. There is unopacified small bowel near the appendix which limits detail. What appears to represent the appendix has air in the lumen and shows no obvious inflammation. There is no free air or abscess identified. There is a small amount of free fluid in the pelvis. IMPRESSION: Chronic pancreatitis. Mild peripancreatic edema which may relate to recurrent/acute pancreatic inflammation. No bowel obstruction. No obvious appendicitis. No evidence of renal stone or hydronephrosis. This exam was performed using automated exposure control, adjustment of mA or kV according to patient size, and/or use of iterative reconstruction technique. Electronically signed by Dwaine Jalloh 06/28/2019 10:05 AM
[2019-06-28 10:12] LABS: BASO# 0.01 X1000 (0.0-0.2); BASO% 0.1 % (0.0-0.8); EOS# 0.08 X1000 (0.0-0.7); EOS% 0.8 % (0.0-10.0); HEMATOCRIT 42.5 % (42.0-52.0); HEMOGLOBIN 14.8 g/dL (14.0-18.0); IMM GRAN# 0.01 X1000 (0.0-0.04); IMM GRAN% 0.1 % (0.0-0.5); LYMPH% 8.7 % (20.5-51.1); MCH 34.1 PG (27-31); MCHC 34.8 g/dL (33-37); MCV 97.9 FL (81-99); MONO# 0.68 X1000 (0.11-0.59); MONO% 6.6 % (1.7-9.3); MPV 9.4 FL (7.4-10.4); NEUT# 8.64 X1000 (1.4-6.5); NEUT% 83.7 % (42.2-75.2); PLT 222 X1000 (130-400); RBC 4.34 XMIL (4.7-6.1); RDW 12.6 % (11.5-14.5); WBC 10.32 X1000 (4.8-10.8)
[2019-06-28 11:35] LABS: AGAP 13; ALKALINE PHOSPHATASE 80 U/L (32-122); BUN 8 mg/dL (8-22); CHLORIDE 98 mmol/L (98-107); COSMO 273; CREATININE 0.8 mg/dL (0.7-1.2); ESTIMATED GFR > 60; GLUCOSE 117 mg/dL (70-104); GOT 28 U/L (10-34); GPT 14 U/L (10-44); LIPASE 721 U/L (13-60); POTASSIUM 3.7 mmol/L (3.5-5.1); SODIUM 137 mmol/L (136-145); TCO2 26 mmol/L (25-35); TOTAL PROTEIN 8.5 g/dL (6.3-8.3)
[2019-06-28] MEDS ORDERED: DILAUDID IV ONE (12:13)
[2019-06-28] MEDS ORDERED: REGLAN IV ONE (12:14)
[2019-06-28 12:35] LABS: URINE SOURCE CLEAN CATCH
--- NOTE | 2019-06-28 12:41 | PROVIDER DOCUMENTATION ---
HPI-Abdominal Pain/GI Problem - General Chief Complaint: Abdominal Pain Stated Complaint: ABD PAIN Time Seen by Provider: 06/28/19 09:20 Allergies/Adverse Reactions: Patient Allergies Allergy/AdvReac Type Severity Reaction Status Date / Time No Known Allergies Allergy Verified 06/28/19 09:24 Home Medications: Home Medication List Medication Instructions Recorded Confirmed Last Taken Type Hydrocodone/APAP 10 mg/325 mg 1 ea PO Q6H PRN PRN #15 tab 03/26/19 06/28/19 Unknown Rx [[place]-10] Hydrocodone/APAP 5 mg/325 mg 1 tab PO Q6H PRN PRN #18 tab 06/27/19 06/28/19 Unknown Rx [[place]-5] Promethazine [Phenergan] 1 tab PO Q6H PRN PRN #18 tab 06/27/19 06/28/19 Unknown Rx - History of Present Illness-ABD Nature of Presenting Problems: pt presents to ED requesting admission for abdominal pain, reports abdominal pain x2 days. pt states, "I was here yesterday, but they said they wouldn't admit me because of all that stuff going around. But I can't handle this at home." Reports hx of pancreatitis. Abdominal Pain Onset Location: reports: epigastric Pain Radiation: reports: no radiation Quality of Pain: reports: sharp Onset/Duration: reports: other (couple days) Timing: reports: still present Activities at Onset: reports: none Exposure to sick contacts?: No Modifying Factors: improves with: vomiting Associated Symptoms: reports: malaise. denies: chest pain, shortness of breath Dark Stools Present?: reports: none noticed Rectal Bleeding: reports: none Review of Systems - Adult - REVIEW OF SYSTEMS - ADULT Constitutional: reports: kanwal. denies: fever Eyes: reports: no symptoms reported Ears, Nose, Mouth & Throat: reports: no symptoms reported Cardiovascular: reports: no symptoms reported Respiratory: reports: no symptoms reported Gastrointestinal: reports: abdominal pain, vomiting Genitourinary: reports: no symptoms reported Musculoskeletal: reports: no symptoms reported Integumentary: reports: no symptoms reported Neurological: reports: no symptoms reported Psychiatric: reports: no symptoms reported Endocrine: reports: no symptoms reported Hematologic/Lymphatic: reports: no symptoms reported Allergic/Immunologic: reports: no symptoms reported Past History - Adult - PAST MEDICAL HISTORY-ADULT Review of Records: reports: Nursing Assessment Review Major Childhood Illnesses: reports: denies history Cardiovascular: reports: denies history Respiratory: reports: denies history Gastrointestinal: reports: pancreatitis Obstetrical/Gynecological: reports: denies history Genitourinary: reports: denies history Musculoskeletal: reports: denies history Neurological: reports: denies history Psychiatric: reports: denies history Endocrine/Immune: reports: denies history Other Conditions: reports: denies history - PRIOR SURGERIES/PROCEDURES Surgical/Procedure History: reports: none - PRIOR HOSPITALIZATIONS Prior Hospitalizations: reports: for similar symptoms - IMMUNIZATION STATUS Childhood Immunizations: See Nurse Assessment Flu Vaccine: See Nurse Assessment - FAMILY HISTORY Family History: reviewed, not pertinent Physical Exam-General - PHYSICAL EXAM-ADULT Initial Vital Signs Reviewed: Yes - CONSTITUTIONAL General Appearance: alert, no apparent distress - EYES Eyes: PERRL/EOMI - HEAD, EARS, NOSE, MOUTH & THROAT HENMT: normocephalic/atraumatic - NECK Neck: full range of motion, supple - RESPIRATORY Respiratory: chest non-tender, lungs clear, normal breath sounds - CARDIOVASCULAR Cardiovascular: normal peripheral pulses, regular rate, rhythm, no edema - GASTROINTESTINAL (ABDOMEN) Abdominal Exam: tenderness, other (epigastric tenderness) - LYMPHATIC Lymphatic: no adenopathy - MUSCULOSKELETAL Back Exam: normal inspection, no CVA tenderness, no vertebral tenderness Extremity: non-tender, normal gait - SKIN Integumentary: normal turgor, warm/dry - NEUROLOGIC Neurologic: grossly normal, no motor/sensory deficits, abnormal cerebellar tests - PSYCHIATRIC Psych/Mental Status: normal mood/affect Progress - PLAN OF CARE/RESULTS Progress/Plan/Lab Results: Vital Signs - 8 hr 06/28/19 09:19 06/28/19 10:19 06/28/19 12:25 Temperature 98.7 F Pulse Rate 67 74 65 Respiratory Rate 19 20 16 Blood Pressure 145/87 135/85 137/87 O2 Sat by Pulse Oximetry 100 98 99 Laboratory Results - last 24 hr 06/28/19 06/28/19 06/28/19 10:06 10:06 10:06 WBC 10.32 RBC 4.34 L Hgb 14.8 Hct 42.5 MCV 97.9 MCH 34.1 H MCHC 34.8 RDW Std Deviation 12.6 Plt Count 222 MPV 9.4 Immature Gran % (Auto) 0.1 Neut % (Auto) 83.7 H Lymph % (Auto) 8.7 L [place] % (Auto) 6.6 Eos % (Auto) 0.8 Baso % (Auto) 0.1 Immature Gran # (Auto) 0.01 Neut # (Auto) 8.64 H Lymph # (Auto) 0.90 L [place] # (Auto) 0.68 H Eos # (Auto) 0.08 Baso # (Auto) 0.01 Sodium 137 Potassium 3.7 Chloride 98 Carbon Dioxide 26 Anion Gap 13 BUN 8 Creatinine 0.8 Estimated GFR/1.73 m2 > 60 BUN/Creatinine Ratio 10 Glucose 117 H Calculated Osmolality 273 Calcium 10.0 Total Bilirubin 0.70 AST 28 ALT 14 Alkaline Phosphatase 80 Total Protein 8.5 H Albumin 5.0 Globulin 4.0 Albumin/Globulin Ratio 1.0 Amylase 529 H Lipase 721 H Urine Source 06/28/19 12:34 WBC RBC Hgb Hct MCV MCH MCHC RDW Std Deviation Plt Count MPV Immature Gran % (Auto) Neut % (Auto) Lymph % (Auto) [place] % (Auto) Eos % (Auto) Baso % (Auto) Immature Gran # (Auto) Neut # (Auto) Lymph # (Auto) [place] # (Auto) Eos # (Auto) Baso # (Auto) Sodium Potassium Chloride Carbon Dioxide Anion Gap BUN Creatinine Estimated GFR/1.73 m2 BUN/Creatinine Ratio Glucose Calculated Osmolality Calcium Total Bilirubin AST ALT Alkaline Phosphatase Total Protein Albumin Globulin Albumin/Globulin Ratio Amylase Lipase Urine Source CLEAN CATCH Orders Category Date Time Status Saline Loc DIRECTED Care 06/28/19 09:22 Active NPO Diet 06/28/19 09:[address] ABDOMEN/PELVIS W/O CONTRAST [CT] Stat Exams 06/28/19 09:35 Completed ALCOHOL BLOOD Stat Lab 06/28/19 12:37 Ordered AMYLASE [CHEM] Stat Lab 06/28/19 10:06 Completed CBC WITH ELECTRONIC DIFF [HEME] Stat Lab 06/28/19 10:06 Completed COMPREHENSIVE METABOLIC PANEL [CHEM] Stat Lab 06/28/19 10:06 Completed LIPASE [CHEM] Stat Lab 06/28/19 10:06 Completed URINALYSIS W/POSS RFLX CULT [URINALYSIS] Stat Lab 06/28/19 12:34 Results 0.9% Sodium Chloride Inj [Ns] 1,000 ml Med 06/28/19 09:23 Discontinued IV 999 mls/hr Hydromorphone [Dilaudid] Med 06/28/19 12:13 Discontinued 1 mg IV NOW ONE Metoclopramide [Reglan] Med 06/28/19 12:14 Discontinued 10 mg IV NOW ONE Morphine Med 06/28/19 10:01 Discontinued 4 mg IV NOW ONE Ondansetron [Zofran] Med 06/28/19 10:02 Discontinued 4 mg IV NOW ONE Pantoprazole [Protonix] Med 06/28/19 09:24 Discontinued 40 mg IV NOW ONE Sodium Chloride 0.9% Med 06/28/19 09:24 Discontinued 10 ml INJ NOW ONE Transfer/Admit Order [TRANSFER] Routine Transfer 06/28/19 12:35 Ordered Result Diagrams: 06/28/19 10:06 06/28/19 10:06 - CONSULTS/PCP/HOSPITALIST Notification #1 *Consult/PCP/Hospitalist*: Dr WALTON Time Discussed: 12:40 Consult Disposition: Admit Departure - Departure Date of Disposition Decision: 06/28/19 Time of Disposition Decision: 12:40 DIAGNOSIS: Pancreatitis Qualifiers: Chronicity: acute Pancreatitis type: unspecified pancreatitis type Acute pancreatitis complication: unspecified Qualified Code(s): K85.90 - Acute pancreatitis without necrosis or infection, unspecified Disposition: ADMITTED INPATIENT 09 Certified Medical Emergency: Emergent Condition: Good Referrals and Follow-Ups: None,PCP [Primary Care Provider] - - Critical Care Note This patient required my direct & personal management of CC.: No Attestation - Physician/ JOSHUA Attestation Patient care was provided by Advanced Practice Provider:: No The physician spent face to face time with patient:: Yes Advanced Practice Provider documentation review:: Supervising physician onsite and consulted in the evaluation and care of this patient. The physician did have a face to face encounter with the patient.
[2019-06-28 13:05] LABS: BILIRUBIN URINE NEGATIVE (NEGATIVE); BLOOD URINE NEGATIVE (NEGATIVE); COLOR YELLOW; GLUCOSE URINE NEGATIVE (NEGATIVE); KETONE URINE 40 mg/dL (NEGATIVE); LEUKOCYTES URINE SMALL (NEGATIVE); NITRITE URINE NEGATIVE (NEGATIVE); PH URINE 7.5; PROTEIN URINE 70 mg/dL (NEGATIVE); SP GRAVITY URINE 1.031; TURBIDITY URINE CLEAR (CLEAR); UROBILINOGEN URINE NORMAL (NORMAL)
[2019-06-28 13:10] LABS: UR EPITHELIAL CELLS <10 /HPF (<10); URINE BACTERIA NEGATIVE /HPF; URINE RBC <10 /HPF (<10); URINE WBC 20-40 /HPF (<10)
[2019-06-28] MEDS ORDERED: DILAUDID IV PRN (13:12)
[2019-06-28] MEDS ORDERED: TYLENOL PO PRN (13:12)
[2019-06-28 13:22] LABS: URINE CASTS NONE SEEN; URINE CRYSTALS NONE SEEN; URINE SMALL ROUND CELLS NONE SEEN; URINE YEAST NONE SEEN
[2019-06-28] MEDS: PROTONIX IV SCH (14:14)
[2019-06-28] MEDS: ZOFRAN IV PRN (16:11)
[2019-06-28] MEDS ORDERED: LR 1,000 ML IV ONE (17:04)
--- NOTE | 2019-06-28 17:38 | HISTORY AND PHYSICAL ---
CHIEF COMPLAINT: Abdominal pain. HISTORY OF PRESENT ILLNESS: This is a 38-year-old male well known to our service, who has been admitted several times for pancreatitis, one in February, one in March. He has been out for three months, so that is good. He says he stopped drinking and I believe his alcohol level was negative. He was negative today it was negative yesterday because he was in the ER yesterday. When he was here in March also negative, so he may actually have stopped drinking. He was a heavy alcohol abuser in the past. So he has had about three days of his classic pain, abdominal pain, going through to his back, radiating upwards. He is very uncomfortable and then he has had protracted nausea and vomiting. He cannot keep anything down. He actually came to the ER yesterday and was requesting admission but I guess because of the coronavirus, they decided not this admit him then, although his lipase at that point was higher than today's 856, amylase of 392. Not sure why they did not admit. He could not handle it at home, pain and persistent nausea and vomiting, so he was admitted. His CT scan shows chronic pancreatitis changes but also some peripancreatic edema which would be consistent with an acute attack. All told, he has been admitted since 2014 eight times. In the last year he has had, again, the three admissions and I am not sure he may not be going other hospitals too, but he will be admitted for acute on chronic pancreatitis here. PAST MEDICAL HISTORY: 1. Pancreatitis, most likely chronic at this point. 2. GERD. PAST SURGICAL HISTORY: Denies. SOCIAL HISTORY: He says he does not smoke but previously he smoked he smokes Black and Mild cigars. History of alcohol abuse but nothing since February, which I think February of last year, so at least four months. ALLERGIES: No known drug allergies. MEDICATIONS: [place] and Phenergan. I do not think he takes anything chronically. REVIEW OF SYSTEMS: Otherwise negative x a 10-point review of systems. FAMILY HISTORY: He does have some diabetes and hypertension but no other major issues. PHYSICAL EXAM: VITAL SIGNS: Blood pressure 141/87, heart rate 69, respiratory rate 18, temperature 97.8 degrees. GENERAL: A well-developed male in no acute distress. HEENT: Head exam was normocephalic and atraumatic. Eye exam: Pupils equal, round, reactive to light. Extraocular movements were intact. Ear, nose and throat exam, he had moist mucous membranes. NECK: Supple. CARDIOVASCULAR: Regular rate and rhythm. No murmurs, gallops or on rubs. Hyperdynamic S1, S2. PULMONARY: Clear to auscultation bilaterally. GASTROINTESTINAL: Soft. He had tenderness to palpation pretty much throughout with voluntary guarding. No rebound tenderness. Nondistended. Bowel sounds were positive. NEUROLOGIC: Nonfocal. MUSCULOSKELETAL: 4/5 in all four extremities. LABORATORY DATA: Again, his lipase is 721, amylase of 529. Liver enzymes okay. White count okay. IMAGING: CT showed acute on chronic pancreatitis. PROBLEM LIST: 1. Acute pancreatitis. We will continue n.p.o. status. Intravenous fluids. He has received one bolus. We will put on lactated Ringer's preferable. We will increase his pain medicine, but he is already on Dilaudid 1 mg every three hours. 2. Gastrointestinal and deep venous thrombosis prophylaxes. Protonix. 3. I do not think he is at high risk for alcohol withdrawal. I really do think he has not been drinking. He says the trigger for this at this time was that he ate ribs and he knew that the fatty foods really is disagreeing with him. He may benefit from Creon at discharge. We will continue to monitor closely, repeat his labs in the morning and see how he does. cc: Shaheen Haas MD
[2019-06-28] MEDS: DILAUDID IV PRN (19:58)
[2019-06-28] MEDS: LR 1,000 ML IV SCH (21:09)
[2019-06-29] MEDS: DILAUDID IV PRN ×6 (01:53→22:53)
[2019-06-29] MEDS: ZOFRAN IV PRN ×5 (01:53→22:54)
[2019-06-29] MEDS: LR 1,000 ML IV SCH ×3 (03:45→17:28)
[2019-06-29 06:47] LABS: AGAP 13; ALBUMIN 4.1 g/dL (3.5-5.0); ALKALINE PHOSPHATASE 67 U/L (32-122); AMYLASE 269 U/L (20-200); BUN 6 mg/dL (8-22); CALCIUM 9.3 mg/dL (8.8-10.2); CHLORIDE 100 mmol/L (98-107); COSMO 273; CREATININE 0.7 mg/dL (0.7-1.2); ESTIMATED GFR > 60; GLUCOSE 98 mg/dL (70-104); GOT 22 U/L (10-34); GPT 10 U/L (10-44); LIPASE 203 U/L (13-60); POTASSIUM 3.9 mmol/L (3.5-5.1); SODIUM 138 mmol/L (136-145); TCO2 25 mmol/L (25-35); TOTAL PROTEIN 7.3 g/dL (6.3-8.3)
[2019-06-29] MEDS: PROTONIX IV SCH (13:36)
[2019-06-29 20:37] LABS: BASO# 0.01 X1000 (0.0-0.2); BASO% 0.1 % (0.0-0.8); EOS# 0.22 X1000 (0.0-0.7); EOS% 2.1 % (0.0-10.0); HEMATOCRIT 41.5 % (42.0-52.0); IMM GRAN# 0.02 X1000 (0.0-0.04); IMM GRAN% 0.2 % (0.0-0.5); LYMPH# 1.28 X1000 (1.2-3.4); MCH 34.7 PG (27-31); MCHC 33.7 g/dL (33-37); MCV 102.7 FL (81-99); MONO# 0.68 X1000 (0.11-0.59); MONO% 6.4 % (1.7-9.3); MPV 10.4 FL (7.4-10.4); NEUT# 8.44 X1000 (1.4-6.5); NEUT% 79.2 % (42.2-75.2); PLT 193 X1000 (130-400); RBC 4.04 XMIL (4.7-6.1); RDW 13.4 % (11.5-14.5); WBC 10.65 X1000 (4.8-10.8)
[2019-06-30] MEDS: LR 1,000 ML IV SCH ×4 (03:31→20:29)
[2019-06-30] MEDS: DILAUDID IV PRN ×5 (03:31→23:32)
[2019-06-30] MEDS: ZOFRAN IV PRN ×2 (03:31→09:06)
--- NOTE | 2019-06-30 04:05 | PROGRESS NOTE ---
DATE: 06/29/2019 CHIEF COMPLAINT: Abdominal pain. He is starting to feel better. His nausea is improved. Still having symptoms, however, still requiring pain medication. No fevers. PHYSICAL EXAM: Vital Signs: Temperature 98, pulse 60, respiratory 20 HEENT: normal CV: regular rate Chest: clear, non labored Abdomen: Soft, mildly tender epigastric area. positive bowel sounds. Extremities: Moves all extremities. IMPRESSION: Acute pancreatitis. PLAN: We will continue to follow, keep n.p.o. or now. Fluids. Recheck labs in am. Hopefully home soon. cc: Kp Lam MD MTDD
[2019-06-30 05:58] LABS: HEMATOCRIT 37.6 % (42.0-52.0); HEMOGLOBIN 12.5 g/dL (14.0-18.0); MCH 33.8 PG (27-31); MCHC 33.2 g/dL (33-37); MCV 101.6 FL (81-99); MPV 10.3 FL (7.4-10.4); RBC 3.7 XMIL (4.7-6.1); RDW 12.6 % (11.5-14.5); WBC 7.82 X1000 (4.8-10.8)
[2019-06-30 06:38] LABS: HEMOGLOBIN A1C 5.2 % (4.8-6.0)
[2019-06-30 06:43] LABS: AGAP 17; ALBUMIN 3.6 g/dL (3.5-5.0); ALKALINE PHOSPHATASE 56 U/L (32-122); AMYLASE 108 U/L (20-200); BUN 9 mg/dL (8-22); CALCIUM 8.9 mg/dL (8.8-10.2); CHLORIDE 98 mmol/L (98-107); CHOLESTEROL 116 mg/dL (0-200); COSMO 274; CREATININE 0.7 mg/dL (0.7-1.2); ESTIMATED GFR > 60; GLUCOSE 67 mg/dL (70-104); GOT 17 U/L (10-34); GPT 8 U/L (10-44); HDL 48 mg/dL (35-55); LDL 47 mg/dL; MAGNESIUM 1.7 mg/dL (1.5-2.7); POTASSIUM 3.5 mmol/L (3.5-5.1); SODIUM 139 mmol/L (136-145); TCO2 24 mmol/L (25-35); TOTAL PROTEIN 6.6 g/dL (6.3-8.3); TRIGLYCERIDES 106 mg/dL (39-160); VLDL 21 mg/dL
[2019-06-30] MEDS: SODIUM CHLORIDE 0.9% INJ SCH ×2 (08:52→14:10)
[2019-06-30] MEDS: PROTONIX IV SCH (14:10)
--- NOTE | 2019-06-30 20:52 | PROGRESS NOTE ---
DATE: 06/30/2019 SUBJECTIVE: Patient notes he is feeling a lot better. He is going to attempt to eat something for breakfast, although still having some abdominal pain, much improved. Still has some nausea but again much improved. PHYSICAL EXAM: Vital signs: Temperature 97 degrees, pulse 61, respiratory 18, BP 116/68. General: Patient is awake, pleasant, no distress lying in the bed. HEENT: Normocephalic. Neck: Supple. Cardiovascular: Regular rate. Chest: Clear nonlabored. Abdomen: Soft diffusely but more so tender although mildly in the epigastric region. Extremities: Moves all extremities. No edema. Neurologic: No changes. ASSESSMENT: Acute pancreatitis. PLAN: We are going to continue patient in the hospital. Continue pain control. Advance diet as tolerated. Further orders as needed. Hopefully can tolerate a little bit more intake today and possibly stop his fluids, and hopefully home tomorrow. cc: Kp Lam MD
[2019-07-01] MEDS: LR 1,000 ML IV SCH ×2 (02:23→05:07)
[2019-07-01 05:05] VITALS: BP 133/73
[2019-07-01] MEDS: DILAUDID IV PRN ×2 (05:06→08:12)
--- NOTE | 2019-07-02 04:30 | DISCHARGE SUMMARY ---
ADMISSION DATE: 06/28/2019 DISCHARGE DATE: 07/01/2019 DISCHARGE DIAGNOSES: 1. Pancreatitis, acute on chronic. 2. Chronic reflux. 3. Chronic pain flare. CONSULTATIONS: None. PROCEDURES: None. BRIEF HOSPITAL COURSE: Patient is a 38-year-old male who presented to [facility] secondary to nausea, vomiting, abdominal pain, myalgias. He was epigastric pain. Denies any hematemesis, melena, hematochezia. He was placed in the hospital, IV fluids, kept p.o. for the first day and a half. As his symptoms improved, he was transitioned over to liquids, and then subsequently to a soft diet, he was tolerating very well. On discharge, he is awake, alert. He is in no distress. DISPOSITION: Patient will be discharged home. Again, discussed with him the perils of alcohol as well as any alcohol containing products. He will continue to eat small meals at home and advance slowly as tolerated. Discussed with him the perils of large fried fatty meals at this point. Further orders as needed. No other changes made on his chronic home medications, diet or activity. cc: Kp Lam MD
== END 2019-07-01 11:49 | disposition home or self-care (01) | DRG 440 ==
LOC: P.ED 09:12 → SUATTDRO 13:03 → P.MEDSURG 13:03
PROVIDERS: ATTEND Family Medicine